=== PATIENT | male | born 1960 | race Caucasian/White ===

== ENCOUNTER → 2020-05-27 | Day surgery (SDC) | payer MEDICARE ==
[2020-05-22 10:51] VITALS: BMI 29.7
[~2020-05-27] MED LIST: ALPRAZolam 0.25 MG TAB PO PRN; ALPRAZolam 0.5 MG TAB PO PRN; ASPIRIN 325 MG TAB PO STA; ATORVASTATIN 80 MG TAB PO STA; HEPARIN SODIUM 1,000 UN/ML (10ML VL) IV ONE; HEPARIN SODIUM 1,000 UN/ML (10ML VL) ONE; HYDROCORTISONE 1% CREAM 30 GM TUBE TOPICAL PRN; IOPAMIDOL-370 100ML BTL INJ ONE; LIDOCAINE 1% INJ 10MG/ML (20 ML MDV) ONE; LIDOCAINE 1% INJ 10MG/ML (20 ML MDV) SQ ONE; MIDAZOLAM 2 MG/2 ML VIAL IVP ONE; NITROGLYCERIN SL TABS 0.4 MG TAB SUBLINGUAL PRN; SODIUM CHLORIDE 0.9% 1,000 ML IV ONE; SODIUM CHLORIDE 0.9% 1,000 ML IV SCH; SODIUM CHLORIDE 0.9% 1,000 ML in EMPTY BAG 1 BAG IV ONE; diphenhydrAMINE 50 MG/ML 1 ML VIAL IVP ONE; diphenhydrAMINE 50 MG/ML 1 ML VIAL ONE; methylPREDNISolone SOD SUCCI 125 MG/2 ML VIAL IV ONE; methylPREDNISolone SOD SUCCI 125 MG/2 ML VIAL ONE
[2020-05-27 07:12] LABS: Basophils # (A) 0.1 k/uL (0-0.2); Basophils % (A) 2 %; Eosinophils # (A) 0.2 k/uL (0-0.7); Eosinophils % (A) 2 %; HCT 42.3 % (39.0-53.0); HGB 13.9 gm/dL (13.0-17.5); Hypochromasia Slight; Lymphocytes # (A) 1.2 k/uL (1.0-4.8); Lymphocytes % (A) 16 %; MCH 30.7 pg (25.0-35.0); MCV 93.2 fL (80.0-100.0); Mean Platelet Volume 9.3; Monocytes # (A) 0.5 k/uL (0-1.0); Monocytes % (A) 6 %; Neutrophils # (A) 5.4 k/uL (1.3-7.7); Neutrophils % (A) 72 %; Platelet Count 195 k/uL (150-450); RBC 4.53 m/uL (4.30-5.90); WBC 7.4 k/uL (3.8-10.6)
[2020-05-27 07:18] VITALS: TEMP 98.1
[2020-05-27 07:25] LABS: Calcium 9.1 mg/dL (8.4-10.2); Potassium 4.4 mmol/L (3.5-5.1)
[2020-05-27 10:15] VITALS: RESP 16
[2020-05-27 13:48] VITALS: BP 131/69; PULSE 86
--- NOTE | 2020-05-27 14:04 | PTCA ---
PERCUTANEOUSTRANS CORORONARY ANGIOGRAPHY DATE OF SERVICE: 05/27/2020. PROCEDURE: PTCA off a chronic total occlusion of mid circumflex. An unsuccessful procedure. PERFORMED BY: Dr. Carlo Taylor. Moderate conscious sedation time was 36 minutes. Patient was administered Versed. Oxygen saturation, hemodynamics, and EKG were monitored closely. CLINICAL INFORMATION: Mr. Meliton Sam is a 60-year-old gentleman with a known history of CAD who underwent a cardiac cath on 05/15/2020 at [facility], which revealed a chronic total occlusion of mid circumflex and beyond it also there were 2 branches of circumflex. This is a dominant vessel and one of the branches also had an additional 80%-90% lesion as well. There was another 80%-90% stenosis in the nondominant RCA. Left main and LAD were free of significant disease. He was advised intervention with the understanding that CRITICAL CARE TRANSPORT NURSE success rate is about 60%-70%. He also has a single kidney with previous nephrectomy and he had history of renal cancer before. He had a left nephrectomy. He was brought in for the procedure after adequate hydration. PROCEDURE NOTE: Under local anesthesia and strict aseptic precautions, a 6-Citizen Of [place] introducer was placed in the right femoral artery. Using a standard left Mague guide catheter, a run- through long wire and a super cross catheter I attempted to cross the lesion. Multiple attempts were made. I also switched over to a 45 degree angle super cross. I was unable to cross the total occlusion. I gave about 60-65 mL of contrast. I discontinued the procedure since this was unsuccessful and I did not want to persist any anymore with his history of single kidney and a creatinine of 1.7. This was discussed with the patient and . I will discharge him later on today and see him in the office and discuss other options at that time. The patient also had developed some rash 4-5 days after his cardiac cath and the rash in the clinical picture does not suggest a rash related to contrast at all. However, I gave him some steroids and Benadryl before the procedure. We will give him a steroid local cream as well to apply over the area and an additional steroid injection before he goes home. However, this does not appear to be a dilated rash. I am advising a Dermatology evaluation as well. The patient will be discharged later on today. This was an unsuccessful PCI procedure. Details were discussed with the patient and . MMODL / IJN: [id number] /
== END ==
LOC: CATHCVL 06:22
PROVIDERS: ATTEND Internal Medicine Interventional Cardiology
DX: I25.10 Atherosclerotic heart disease of native coronary artery without angina pectoris (principal); I25.82 Chronic total occlusion of coronary artery; R21 Rash and other nonspecific skin eruption; I25.5 Ischemic cardiomyopathy; I12.9 Hypertensive chronic kidney disease with stage 1 through stage 4 chronic kidney disease, or unspecified chronic kidney disease; N18.3 Chronic kidney disease, stage 3 (moderate); E87.6 Hypokalemia; Z90.5 Acquired absence of kidney; Z85.528 Personal history of other malignant neoplasm of kidney; Z72.0 Tobacco use; Z79.899 Other long term (current) drug therapy; Z79.82 Long term (current) use of aspirin; Z88.2 Allergy status to sulfonamides; Z82.49 Family history of ischemic heart disease and other diseases of the circulatory system
CPT/HCPCS: 92943; 85347; 80048; 85025; C1769 ×4; C1760; C1887 ×2; C1894; J2250; J1200; J2930; J2001; J1644; Q9967; 92920

== ENCOUNTER → 2020-05-30 | Outpatient (CLI) | payer MEDICARE ==
[2020-05-30 11:52] LABS: HCT 44.6 % (39.0-53.0); Hypochromasia Slight; MCH 29.6 pg (25.0-35.0); MCHC 31.5 g/dL (31.0-37.0); Mean Platelet Volume 9.4; Platelet Count 196 k/uL (150-450); RBC 4.74 m/uL (4.30-5.90); RDW 14.8 % (11.5-15.5); WBC 8.7 k/uL (3.8-10.6)
[2020-05-30 20:42] LABS: African American GFR (CKD) 62.8 (60.0-200.0); Anion Gap 4.6 mmol/L (4.00-12.00); BUN/Creat Ratio 22.14 Ratio (12.00-20.00); Carbon Dioxide 30.4 mmol/L (21.6-31.8); Non-African American GFR(CKD) 54.2 (60.0-200.0); Potassium 4.5 mmol/L (3.5-5.5)
== END | disposition home or self-care (01) ==
LOC: LABWHC1 10:22
PROVIDERS: ATTEND Internal Medicine Interventional Cardiology
DX: I25.10 Atherosclerotic heart disease of native coronary artery without angina pectoris (principal); N18.9 Chronic kidney disease, unspecified
CPT/HCPCS: 36415; 80048; 85027

== ENCOUNTER 2020-08-11 13:56 | Inpatient (IN) | payer MEDICARE ==
[2020-08-11] MEDS ORDERED: VANCOMYCIN IV PER PHARMACY 1 EACH MISC MISCELLANE PRN (14:23)
[2020-08-11] MEDS ORDERED: cefTRIAXone IN SWFI 1,000 MG/10 ML SYRINGE IVP STA (14:24)
[2020-08-11] MEDS ORDERED: SODIUM CHLORIDE 0.9% 500 ML 500 ML IV STA (14:24)
--- NOTE | 2020-08-11 14:29 | ED ---
General Adult HPI - General Chief complaint: Skin/Abscess/Foreign Body Stated complaint: Bug bite Time Seen by Provider: 08/11/20 14:07 Source: patient, RN notes reviewed Mode of arrival: ambulatory Limitations: no limitations - History of Present Illness Initial comments: 60-year-old male with a past medical history of CAD, PA, COPD, CVA, renal disease presents to the emergency room for a chief complaint of "bug bite" to the right wrist. Patient reports that 2 days ago he felt a pain in the right wrist. Patient states he thinks he may have been bitten by a bug. States that since that time it has become red and swollen. States it is swelling all into his hand and up his arm. States it is somewhat painful to move his wrist but he can do so. Patient reports he also has some redness to the front of his right knee. Denies difficulty moving the knee. Patient reports that he was treated for abscess of the left anterior knee about 2 weeks ago. He has been on steroids for atopic dermatitis. Patient reports that he did have a 101 fever pr ior to arrival and took Tylenol. Patient reports he is supposed to have stents placed on Wednesday and is planning to have access through the wrist and groin. Patient has no other complaints at this time including shortness of breath, chest pain, abdominal pain, nausea or vomiting, headache, or visual changes. - Related Data Home Medications Medication Instructions Recorded Confirmed Allopurinol [Zyloprim] 100 mg PO BID 05/22/20 05/27/20 Aspirin [Adult Low Dose Aspirin EC] 81 mg PO DAILY 05/22/20 05/27/20 Atorvastatin [Lipitor] 20 mg PO DAILY 05/22/20 05/27/20 Cannabidiol (Cbd) [Epidiolex] 0 mg PO DIRECTED PRN 05/22/20 05/22/20 Cetirizine HCl [Zyrtec] 10 mg PO DAILY 05/22/20 05/27/20 Furosemide [Lasix] 20 mg PO 1500 05/22/20 05/27/20 Furosemide [Lasix] 40 mg PO DAILY 05/22/20 05/27/20 Losartan Potassium [Cozaar] 25 mg PO DAILY 05/22/20 05/27/20 Metoprolol Tartrate [Lopressor] 25 mg PO BID 05/22/20 05/27/20 Multivit-Min/FA/Lycopen/Lutein 1 each PO DAILY 05/22/20 05/27/20 [Centrum Silver Tablet] Potassium Chloride 10 meq PO TID 05/22/20 05/27/20 Triamcinolone 0.5% Cream [Kenalog 1 applic TOPICAL DIRECTED PRN 05/22/20 05/22/20 0.5% Cream] Allergies Allergy/AdvReac Type Severity Reaction Status Date / Time Iodine and Iodide Containing Allergy Rash/Hives Verified 08/11/20 14:06 Produc Sulfa (Sulfonamide Allergy Rash/Hives Verified 08/11/20 14:06 Antibiotics) sulfamethoxazole Allergy Rash/Hives Verified 08/11/20 14:06 [From Bactrim] trimethoprim [From Bactrim] Allergy Rash/Hives Verified 08/11/20 14:06 Review of Systems ROS Statement: Those systems with pertinent positive or pertinent negative responses have been documented in the HPI. ROS Other: All systems not noted in ROS Statement are negative. Past Medical History Past Medical History: Coronary Artery Disease (CAD), Chest Pain / Angina, COPD, CVA/TIA, Myocardial Infarction (PA), Osteoarthritis (OA), Renal Disease, Skin Disorder Additional Past Medical History / Comment(s): hx migraines, epileptic seizures age 5-no rx, TIA, PA x 2, electrocuted 30 yrs ago, diverticulitis, eczema, atopic dermatitis, renal disease stage 3, "swelling of whole body",, SOB, needs cardiac stent placed on 08/13 Last Myocardial Infarction Date:: unknown History of Any Multi-Drug Resistant Organisms: None Reported Past Surgical History: Ear Surgery, Heart Catheterization Additional Past Surgical History / Comment(s): left nephrectomy, tip of jade index fingers surgery after injury, heart cath 04/2020 at [facility], prosthetic surgery jade ears for otosclerosis Past Anesthesia/Blood Transfusion Reactions: No Reported Reaction Past Psychological History: No Psychological Hx Reported Smoking Status: Former smoker Past Alcohol Use History: Rare Past Drug Use History: Marijuana - Past Family History Brother(s) Family Medical History: Cancer Mother Family Medical History: Blood Disorder General Exam - General Exam Comments Initial Comments: Right upper extremity: Patient has edema with erythema noted of the right hand wrist and distal forearm. He has an area of induration noted to the medial dorsal right wrist. This is not fluctuant. No active drainage. Patient is able to flex and extend at the wrist although has somewhat limited range of motion secondary to pain. Radial pulses 2+. Capillary refill is less than 2 seconds. Right lower extremity: patient does have some erythema to the anterior right knee. He has full range of motion of the knee joint. Patient able to ambulate on the right knee. Capillary refill less than 2 seconds. Limitations: no limitations General appearance: alert, in no apparent distress Head exam: Present: atraumatic, normocephalic, normal inspection Eye exam: Present: normal appearance, PERRL, EOMI. Absent: scleral icterus, conjunctival injection, periorbital swelling ENT exam: Present: normal exam, mucous membranes moist Neck exam: Present: normal inspection. Absent: tenderness, meningismus, lymphadenopathy Respiratory exam: Present: normal lung sounds bilaterally. Absent: respiratory distress, wheezes, rales, rhonchi, stridor Cardiovascular Exam: Present: regular rate, normal rhythm, normal heart sounds. Absent: systolic murmur, diastolic murmur, rubs, gallop, clicks GI/Abdominal exam: Present: soft, normal bowel sounds. Absent: distended, tenderness, guarding, rebound, rigid Course Vital Signs 08/11/20 13:58 Temperature 99.1 F Pulse Rate 83 Respiratory 18 Rate Blood Pressure 112/62 O2 Sat by Pulse 94 L Oximetry - Reevaluation(s) Reevaluation #1: 08/11/20 14:28 Dr Lopes evaluated patient at bedside, we will proceed with laboratory evaluation and IV abx. Procedures - Incision & Drainage Consent Obtained: verbal consent Indication: possible abscess Site: upper extremity Size (cm): 2 Needle Aspiration Performed?: No (18 G used) Irrigation Performed?: No I&D Drainage Obtained: Blood Patient Tolerated Procedure: well, no complications Medical Decision Making - Medical Decision Making Vitals are stable although patient reports a fever at home. HPI and physical exam is recommended. Patient was found have a white count of 17 with a left shift. CMP does show evidence of CKD. GFR is 47. Patient will be started on IV antibiotics Rocephin and vancomycin. Patient will be admitted for further management. I did attempt incision and drainage of induration on the right wrist however no purulent material expelled. - Lab Data Result diagrams: 08/11/20 14:33 08/11/20 14:33 Lab Results 08/11/20 08/11/20 08/11/20 Range/Units 14:33 14:33 14:33 WBC 17.6 H (3.8-10.6) k/uL RBC 4.63 (4.30-5.90) m/uL Hgb 13.4 (13.0-17.5) gm/dL Hct 42.3 (39.0-53.0) % MCV 91.3 (80.0-100.0) fL MCH 28.8 (25.0-35.0) pg MCHC 31.6 (31.0-37.0) g/dL RDW 15.1 (11.5-15.5) % Plt Count 132 L (150-450) k/uL Neutrophils % 90 % Lymphocytes % 4 % Monocytes % 5 % Eosinophils % 0 % Basophils % 1 % Neutrophils # 15.8 H (1.3-7.7) k/uL Lymphocytes # 0.7 L (1.0-4.8) k/uL Monocytes # 0.9 (0-1.0) k/uL Eosinophils # 0.1 (0-0.7) k/uL Basophils # 0.1 (0-0.2) k/uL Sodium 133 L (137-145) mmol/L Potassium 4.2 (3.5-5.1) mmol/L Chloride 101 (98-107) mmol/L Carbon Dioxide 28 (22-30) mmol/L Anion Gap 4 mmol/L BUN 26 H (9-20) mg/dL Creatinine 1.59 H (0.66-1.25) mg/dL Est GFR (CKD-EPI)AfAm 54 (>60 ml/min/1.73 sqM) Est GFR (CKD-EPI)NonAf 47 (>60 ml/min/1.73 sqM) Glucose 128 H (74-99) mg/dL Plasma Lactic Acid Shimon 1.2 (0.7-2.0) mmol/L Calcium 9.4 (8.4-10.2) mg/dL Total Bilirubin 0.4 (0.2-1.3) mg/dL AST 20 (17-59) U/L ALT 17 (4-49) U/L Alkaline Phosphatase 63 (38-126) U/L Total Protein 6.3 (6.3-8.2) g/dL Albumin 3.6 (3.5-5.0) g/dL Disposition Clinical Impression: Cellulitis, Leukocytosis Disposition: ADMITTED IP TO THIS HOSP Is patient prescribed a controlled substance at d/c from ED?: No Referrals: Jostin Feliz MD [Primary Care Provider] - 1-2 days Time of Disposition: 15:15
[2020-08-11] MEDS ORDERED: SODIUM CHLORIDE 0.9% 500 ML 500 ML IV SCH (14:30)
[2020-08-11] MEDS ORDERED: VANCOMYCIN 2,000 MG in SODIUM CHLORIDE 0.9% 500 ML 500 ML IVPB ONE (14:30)
[2020-08-11 14:46] LABS: Basophils # (A) 0.1 k/uL (0-0.2); Basophils % (A) 1 %; Eosinophils # (A) 0.1 k/uL (0-0.7); Eosinophils % (A) 0 %; HCT 42.3 % (39.0-53.0); HGB 13.4 gm/dL (13.0-17.5); Lymphocytes # (A) 0.7 k/uL (1.0-4.8); Lymphocytes % (A) 4 %; MCH 28.8 pg (25.0-35.0); MCHC 31.6 g/dL (31.0-37.0); MCV 91.3 fL (80.0-100.0); Mean Platelet Volume 9.3; Monocytes # (A) 0.9 k/uL (0-1.0); Monocytes % (A) 5 %; Neutrophils # (A) 15.8 k/uL (1.3-7.7); Neutrophils % (A) 90 %; Platelet Count 132 k/uL (150-450); RBC 4.63 m/uL (4.30-5.90); RDW 15.1 % (11.5-15.5); WBC 17.6 k/uL (3.8-10.6)
[2020-08-11 14:59] LABS: Albumin 3.6 g/dL (3.5-5.0); Calcium 9.4 mg/dL (8.4-10.2); Potassium 4.2 mmol/L (3.5-5.1); Total Bilirubin 0.4 mg/dL (0.2-1.3); Total Protein 6.3 g/dL (6.3-8.2)
[2020-08-11] MEDS ORDERED: HYDROcodone/APAP 5-325MG 1 EACH TAB PO PRN (15:12)
[2020-08-11] MEDS ORDERED: NALOXONE 0.4 MG/ML 1 ML VIAL IV PRN (15:12)
[2020-08-11] MEDS ORDERED: ONDANSETRON 4 MG/2 ML VIAL IVP PRN (15:14)
--- NOTE | 2020-08-11 15:33 | XR ---
Right wrist HISTORY: Pain and swelling, but bite, cellulitis 4 views of the right wrist Probable geode present within the capitate and triquetrum bones. Bone mineralization, joint spaces an d alignment otherwise maintained. There is soft tissue swelling present. IMPRESSION: Soft tissue swelling.
[2020-08-11] MEDS: MORPHINE SULFATE 4 MG/ML SYRINGE IVP PRN (16:12)
[2020-08-11] MEDS: SODIUM CHLORIDE 0.9% 1,000 ML IV SCH (17:12)
[2020-08-11] MEDS: ACETAMINOPHEN TAB 325 MG TAB PO PRN (19:39)
[2020-08-12] MEDS: MORPHINE SULFATE 4 MG/ML SYRINGE IVP PRN ×2 (01:15→17:09)
[2020-08-12] MEDS: SODIUM CHLORIDE 0.9% 1,000 ML IV SCH ×2 (03:30→18:58)
[2020-08-12 05:01] LABS: Basophils % (A) 0 %; Eosinophils % (A) 0 %; HCT 40.5 % (39.0-53.0); HGB 12.8 gm/dL (13.0-17.5); Hypochromasia Slight; Lymphocytes # (A) 1.2 k/uL (1.0-4.8); Lymphocytes % (A) 8 %; MCH 29.3 pg (25.0-35.0); MCHC 31.7 g/dL (31.0-37.0); MCV 92.4 fL (80.0-100.0); Mean Platelet Volume 9.1; Monocytes # (A) 0.7 k/uL (0-1.0); Monocytes % (A) 5 %; Neutrophils # (A) 12.6 k/uL (1.3-7.7); Neutrophils % (A) 86 %; Platelet Count 123 k/uL (150-450); RBC 4.38 m/uL (4.30-5.90); RDW 15.4 % (11.5-15.5); WBC 14.7 k/uL (3.8-10.6)
[2020-08-12] MEDS: ACETAMINOPHEN TAB 325 MG TAB PO PRN ×3 (05:54→23:01)
[2020-08-12] MEDS ORDERED: VANCOMYCIN 1,500 MG in SODIUM CHLORIDE 0.9% 250 ML IVPB SCH (07:00)
[2020-08-12 10:11] LABS: African American GFR (CKD) 75.7 (60.0-200.0); Anion Gap 5.3 mmol/L (4.00-12.00); BUN/Creat Ratio 17.5 Ratio (12.00-20.00); Calcium 8.5 mg/dL (8.7-10.3); Carbon Dioxide 28.7 mmol/L (21.6-31.8); Non-African American GFR(CKD) 65.3 (60.0-200.0); Potassium 4.3 mmol/L (3.5-5.5)
[2020-08-12] MEDS ORDERED: TRIAMCINOLONE ACET 0.5% CREAM 15 GM TUBE TOPICAL PRN (12:30)
[2020-08-12] MEDS ORDERED: IPRATROPIUM-ALBUTEROL 3 ML NEB INHALATION PRN (12:34)
--- NOTE | 2020-08-12 13:29 | P.HPIM ---
History of Present Illness 6-year-old pleasant male came in with swelling of the right hand a little bit with cellulitis patient does have significant induration with local is of temperature pain burning sensation in that area patient also has an area over the knee which appears to be cellulitic as well. Patient was outdoors and believes he may have had a bug bite B bite which may have caused these symptoms. Patient all these immunosuppressive patient does have history of atopic dermatitis and does have skin lesions consistent with that and patient is on prednisone for that. The patient had hospital physicians in the past but the denied any history of MRSA in the past. Patient was given vancomycin which will receive his switched to ceftezole and and the infectious disease will be consulted. Patient has what kidney status post nephrectomy patient does have some chronic kidney disease use does use Lasix to prevent pedal edema. Review of Systems REVIEW OF SYSTEMS: CONSTITUTIONAL: No fever, no malaise, no fatigue. HEENT: No recent visual problems or hearing problems. Denied any sore throat. CARDIOVASCULAR: No chest pain, orthopnea, PND, no palpitations, no syncope. PULMONARY: No shortness of breath, no cough, no hemoptysis. GASTROINTESTINAL: No diarrhea, no nausea, no vomiting, no abdominal pain. NEUROLOGICAL: No headaches, no weakness, no numbness. HEMATOLOGICAL: Denies any bleeding or petechiae. GENITOURINARY: Denies any burning micturition, frequency, or urgency. MUSCULOSKELETAL/RHEUMATOLOGICAL: Denies any joint pain, swelling, or any muscle pain. ENDOCRINE: Denies any polyuria or polydipsia. The rest of the 14-point review of systems is negative. Past Medical History Past Medical History: Coronary Artery Disease (CAD), Chest Pain / Angina, COPD, CVA/TIA, Myocardial Infarction (PA), Osteoarthritis (OA), Renal Disease, Skin Disorder Additional Past Medical History / Comment(s): hx migraines, epileptic seizures age 5-no rx, TIA, PA x 2, electrocuted 30 yrs ago, diverticulitis, eczema, atopic dermatitis, renal disease stage 3, "swelling of whole body",, SOB, needs cardiac stent placed on 08/13 Last Myocardial Infarction Date:: unknown History of Any Multi-Drug Resistant Organisms: None Reported Past Surgical History: Ear Surgery, Heart Catheterization Additional Past Surgical History / Comment(s): left nephrectomy, tip of jade index fingers surgery after injury, heart cath 04/2020 at [facility], prosthetic surgery jade ears for otosclerosis Past Anesthesia/Blood Transfusion Reactions: No Reported Reaction Past Psychological History: No Psychological Hx Reported Smoking Status: Former smoker Past Alcohol Use History: Rare Additional Past Alcohol Use History / Comment(s): quit smoking 2015, smoked for 30 yrs Past Drug Use History: Marijuana Additional Drug Use History / Comment(s): CBC oil, edible - Past Family History Brother(s) Family Medical History: Cancer Mother Family Medical History: Blood Disorder Medications and Allergies Home Medications Medication Instructions Recorded Confirmed Type Allopurinol [Zyloprim] 100 mg PO BID 05/22/20 08/11/20 History Aspirin [Adult Low Dose Aspirin EC] 81 mg PO DAILY 05/22/20 08/11/20 History Atorvastatin [Lipitor] 20 mg PO DAILY 05/22/20 08/11/20 History Cetirizine HCl [Zyrtec] 10 mg PO DAILY 05/22/20 08/11/20 History Furosemide [Lasix] 20 mg PO DAILY@1500 05/22/20 08/11/20 History Furosemide [Lasix] 40 mg PO DAILY 05/22/20 08/11/20 History Losartan Potassium [Cozaar] 25 mg PO DAILY 05/22/20 08/11/20 History Metoprolol Tartrate [Lopressor] 25 mg PO BID 05/22/20 08/11/20 History Multivit-Min/FA/Lycopen/Lutein 1 tab PO DAILY 05/22/20 08/11/20 History [Centrum Silver Tablet] Potassium Chloride 10 meq PO HS 05/22/20 08/11/20 History Triamcinolone 0.5% Cream [Kenalog 1 applic TOPICAL DAILY PRN 05/22/20 08/11/20 History 0.5% Cream] Potassium Chloride 20 meq PO DAILY 08/11/20 08/11/20 History predniSONE See Taper PO DAILY 08/11/20 08/11/20 History Allergies Allergy/AdvReac Type Severity Reaction Status Date / Time Iodine and Iodide Containing Allergy Rash/Hives Verified 08/11/20 15:41 Produc Sulfa (Sulfonamide Allergy Rash/Hives Verified 08/11/20 15:41 Antibiotics) sulfamethoxazole Allergy Rash/Hives Verified 08/11/20 15:41 [From Bactrim] trimethoprim [From Bactrim] Allergy Rash/Hives Verified 08/11/20 15:41 Physical Exam Vitals: Vital Signs Temp Pulse Pulse Resp BP BP Pulse Ox 08/12/20 08:00 86 20 08/12/20 07:00 99.9 F H 86 20 125/69 94 L 08/12/20 01:00 99.8 F H 77 20 144/75 92 L 08/11/20 19:30 98.5 F 82 20 130/77 95 08/11/20 16:12 98 F 74 20 118/67 94 L 08/11/20 16:00 74 20 08/11/20 15:39 97.9 F 76 18 122/60 100 08/11/20 13:58 99.1 F 83 18 112/62 94 L Intake and Output 08/11/20 08/12/20 08/12/20 22:59 06:59 14:59 Intake Total 300 100 Balance 300 100 Intake: Oral 300 100 Other: Voiding Method Toilet Toilet # Voids 1 2 Weight 102.058 kg PHYSICAL EXAMINATION: GENERAL: The patient is alert and oriented x3, not in any acute distress. Well developed, well nourished. HEENT: Pupils are round and equally reacting to light. EOMI. No scleral icterus. No conjunctival pallor. Normocephalic, atraumatic. No pharyngeal erythema. No thyromegaly. CARDIOVASCULAR: S1 and S2 present. No murmurs, rubs, or gallops. PULMONARY: Chest is clear to auscultation, no wheezing or crackles. ABDOMEN: Soft, nontender, nondistended, normoactive bowel sounds. No palpable organomegaly. MUSCULOSKELETAL: No joint swelling or deformity. EXTREMITIES: No cyanosis, clubbing, or pedal edema. NEUROLOGICAL: Gross neurological examination did not reveal any focal deficits. SKIN:lesions and a scribe ration consistent with atopic dermatitis and cellulitis of the right arm extending from the wrist to joint almost up to the e lbow joint and there is a small nidus of infection. Local is of temperature patient does have in duration local is of temperature and redness patient also has a small area of cellulitis over the knee also has a nidus of infection Results CBC & Chem 7: 08/12/20 04:15 08/12/20 04:15 Labs: Abnormal Lab Results - Last 24 Hours (Table) 08/11/20 08/11/20 08/12/20 Range/Units 14:33 14:33 04:15 WBC 17.6 H 14.7 H (3.8-10.6) k/uL Hgb 12.8 L (13.0-17.5) gm/dL Plt Count 132 L 123 L (150-450) k/uL Neutrophils # 15.8 H 12.6 H (1.3-7.7) k/uL Lymphocytes # 0.7 L (1.0-4.8) k/uL Sodium 133 L (137-145) mmol/L BUN 26 H (9-20) mg/dL Creatinine 1.59 H (0.66-1.25) mg/dL Glucose 128 H (74-99) mg/dL Calcium (8.7-10.3) mg/dL 08/12/20 Range/Units 04:15 WBC (3.8-10.6) k/uL Hgb (13.0-17.5) gm/dL Plt Count (150-450) k/uL Neutrophils # (1.3-7.7) k/uL Lymphocytes # (1.0-4.8) k/uL Sodium (137-145) mmol/L BUN (9-20) mg/dL Creatinine (0.66-1.25) mg/dL Glucose (74-99) mg/dL Calcium 8.5 L (8.7-10.3) mg/dL Thrombosis Risk Factor Assmnt - Choose All That Apply Each Factor Represents 1 point: Age 41-60 years Thrombosis Risk Factor Assessment Total Risk Factor Score: 1 Thrombosis Risk Factor Assessment Level: Low Risk Assessment and Plan Plan: 1sepsis and cellulitis or induration of the right arm as well ascellulitis of right knee: Patient will continued on ceftezolin and patient is receiving IV fluids which will be continued.Blanca with IV fluids [place]-chronic kidney disease stage II patient has unilateral kidney patient that creatinine improved with IV fluids which will be continued hold off Lasix for now -COPD without any acute exacerbation -History of atopic dermatitis and eczema: Patient is on steroids for that which will be continued the steroids are being Tapered because of his the scram admission and exacerbation of her he took his of atopic dermatitis -CVA/TIA in the past -acute renal failure secondary to possibly from diuretics which improved now. -Coronary artery disease patient is supposed to get characterization tomorrow but this is being postponed because of his hospitalization and infection. -DVT prophylaxis with Lovenox
[2020-08-12] MEDS ORDERED: ceFAZolin 3 GM in SODIUM CHLORIDE 0.9% 100 ML IVPB SCH (16:00)
[2020-08-12] MEDS: predniSONE 10 MG TAB PO SCH ×2 (18:58→21:51)
[2020-08-12] MEDS: FAMOTIDINE 20 MG TAB PO SCH (20:10)
[2020-08-12] MEDS: allopurinoL 100 MG TAB PO SCH (20:10)
[2020-08-12] MEDS: METOPROLOL TARTRATE 25 MG TAB PO SCH (20:10)
[2020-08-12] MEDS ORDERED: VANCOMYCIN 1,750 MG in SODIUM CHLORIDE 0.9% 500 ML 500 ML IVPB SCH (21:00)
[2020-08-12] MEDS ORDERED: VANCOMYCIN IV PER PHARMACY 1 EACH MISC MISCELLANE PRN (22:14)
--- NOTE | 2020-08-12 22:22 | P.CONS ---
History of Present Illness - Reason for Consult Consult date: 08/12/20 Right wrist and right lower thigh abscess and cellulitis Requesting physician: Santi Mahmood - Chief Complaint Right wrist and lower thigh swelling and redness x 2 days - History of Present Illness Patient is 60-year-old male with a past medical history significant for recurrent skin soft tissue infection patient did have an abscess to the right lower thigh that was drained by his primary care physician culture were sent to [facility] which I was unable to review and grew MRSA patient mentioned he was treated with an oral antibiotic however is not sure about the name patient is now presenting to [facility] yesterday for evaluation of pain and swelling of the right forearm as well as the right lower thigh area that has been getting worse for the last 2 days patient think he may have a bump in those areas patient described the pain to the right forearm and wrist area to be throbbing intensity is almost healed up and and no radiation of pain to the right lower thigh area of swelling redness is more of a 5-6 out of 10 and no radiation the patient currently denies any drainage from these wounds patient on arrival to the ER yesterday did have a low-grade fever of 99.1 subsequent spike a fever of 99.8 and did have elevated white count 17,000 x-rays of the wrist tissue some soft tissue swelling but no bony changes patient was started on vancomycin admitted to the hospital anybody subsequently has been switched to cefazolin by admitting physician and infectious disease was consulted for further management of antibiotic therapy Review of Systems Positive point has been mentioned in the HPI rest of the systems are negative Past Medical History Past Medical History: Coronary Artery Disease (CAD), Chest Pain / Angina, COPD, CVA/TIA, Myocardial Infarction ([place]), Osteoarthritis (OA), Renal Disease, Skin Disorder Additional Past Medical History / Comment(s): hx migraines, epileptic seizures age 5-no rx, TIA, [place] x 2, electrocuted 30 yrs ago, diverticulitis, eczema, atopic dermatitis, renal disease stage 3, "swelling of whole body",, SOB, needs cardiac stent placed on 08/13 Last Myocardial Infarction Date:: unknown History of Any Multi-Drug Resistant Organisms: None Reported Past Surgical History: Ear Surgery, Heart Catheterization Additional Past Surgical History / Comment(s): left nephrectomy, tip of jade index fingers surgery after injury, heart cath 04/2020 at [facility], prosthetic surgery jade ears for otosclerosis Past Anesthesia/Blood Transfusion Reactions: No Reported Reaction Past Psychological History: No Psychological Hx Reported Smoking Status: Former smoker Past Alcohol Use History: Rare Additional Past Alcohol Use History / Comment(s): quit smoking 2015, smoked for 30 yrs Past Drug Use History: Marijuana Additional Drug Use History / Comment(s): CBC oil, edible - Past Family History Brother(s) Family Medical History: Cancer Mother Family Medical History: Blood Disorder Medications and Allergies Home Medications Medication Instructions Recorded Confirmed Type Allopurinol [Zyloprim] 100 mg PO BID 05/22/20 08/11/20 History Aspirin [Adult Low Dose Aspirin EC] 81 mg PO DAILY 05/22/20 08/11/20 History Atorvastatin [Lipitor] 20 mg PO DAILY 05/22/20 08/11/20 History Cetirizine HCl [Zyrtec] 10 mg PO DAILY 05/22/20 08/11/20 History Furosemide [Lasix] 20 mg PO DAILY@1500 05/22/20 08/11/20 History Furosemide [Lasix] 40 mg PO DAILY 05/22/20 08/11/20 History Losartan Potassium [Cozaar] 25 mg PO DAILY 05/22/20 08/11/20 History Metoprolol Tartrate [Lopressor] 25 mg PO BID 05/22/20 08/11/20 History Multivit-Min/FA/Lycopen/Lutein 1 tab PO DAILY 05/22/20 08/11/20 History [Centrum Silver Tablet] Potassium Chloride 10 meq PO HS 05/22/20 08/11/20 History Triamcinolone 0.5% Cream [Kenalog 1 applic TOPICAL DAILY PRN 05/22/20 08/11/20 History 0.5% Cream] Potassium Chloride 20 meq PO DAILY 08/11/20 08/11/20 History predniSONE See Taper PO DAILY 08/11/20 08/11/20 History Allergies Allergy/AdvReac Type Severity Reaction Status Date / Time Iodine and Iodide Containing Allergy Rash/Hives Verified 08/11/20 15:41 Produc Sulfa (Sulfonamide Allergy Rash/Hives Verified 08/11/20 15:41 Antibiotics) sulfamethoxazole Allergy Rash/Hives Verified 08/11/20 15:41 [From Bactrim] trimethoprim [From Bactrim] Allergy Rash/Hives Verified 08/11/20 15:41 Physical Exam Vitals: Vital Signs Temp Pulse Resp BP Pulse Ox 08/12/20 19:25 98.9 F 94 20 159/80 96 08/12/20 18:58 8 L 8 L 08/12/20 16:00 92 17 08/12/20 14:07 99.4 F 92 17 150/72 96 08/12/20 08:00 86 20 08/12/20 07:00 99.9 F H 86 20 125/69 94 L 08/12/20 01:00 99.8 F H 77 20 144/75 92 L Intake and Output 08/12/20 08/12/20 08/12/20 06:59 14:59 22:59 Intake Total 100 Output Total 600 Balance 100 -600 Intake: Oral 100 Output: Urine 600 Other: Voiding Method Toilet Toilet # Voids 2 1 1 GENERAL DESCRIPTION: Middle-aged male lying in bed, no distress. No tachypnea or accessory muscle of respiration use. HEENT: Shows Pallor , no scleral icterus. Oral mucous membrane is dry. No pharyngeal erythema or thrush NECK: Trachea central, no thyromegaly. LUNGS: Unlabored breathing. Clear to auscultation anteriorly. No wheeze or crackle. HEART: S1, S2, regular rate and rhythm. No loud murmur ABDOMEN: Soft, no tenderness , guarding or rigidity, no organomegaly EXTREMITIES: No edema of feet. SKIN: Right wrist did have an area swelling and induration warm and tender to touch, right medial lower thigh did have an area of induration and swelling and redness slightly fluctuant but no drainage NEUROLOGICAL: The patient is awake, alert, oriented x3, mood and affect normal. Results CBC & Chem 7: 08/12/20 04:15 08/12/20 04:15 Labs: Abnormal Lab Results - Last 24 Hours (Table) 08/12/20 08/12/20 Range/Units 04:15 04:15 WBC 14.7 H (3.8-10.6) k/uL Hgb 12.8 L (13.0-17.5) gm/dL Plt Count 123 L (150-450) k/uL Neutrophils # 12.6 H (1.3-7.7) k/uL Calcium 8.5 L (8.7-10.3) mg/dL Microbiology - Last 24 Hours (Table) 08/11/20 14:33 Blood Culture - Preliminary Blood No Growth after 24 hours Assessment and Plan Assessment: 1- patient presented to hospital with sepsis in this patient who did have a fever and elevated white count source is likely right forearm as well as right lower medial thigh abscess and cellulitis in this patient who recently did have a left lower thigh abscess cellulitis culture were positive for MRSA that was drained by his family physician in the office 2- Patient with multiple antibiotic ALLERGIES that would limit the number of ant ibiotic safe to use (1) Cellulitis and abscess of right leg Current Visit: Yes Status: Acute Code(s): L03.115 - CELLULITIS OF RIGHT LOWER LIMB; L02.415 - CUTANEOUS ABSCESS OF RIGHT LOWER LIMB SNOMED Code(s): 897964136 (2) Sepsis Current Visit: Yes Status: Acute Code(s): A41.9 - SEPSIS, UNSPECIFIED ORGANISM SNOMED Code(s): 27929917 (3) Allergy to sulfa drugs Current Visit: Yes Status: Acute Code(s): Z88.2 - ALLERGY STATUS TO SULFONAMIDES STATUS SNOMED Code(s): 78519728 Plan: 1- discontinue cefazolin 2-Vancomycin pharmacy to dose target trough of 15 while watching his kidney function and Vanco trough closely 3- patient will benefit from surgical evaluation and drainage of these abscess We will follow on clinical condition and cultures to further adjust medication if needed Thank you for this consultation will follow this patient with you Time with Patient: Greater than 30
[2020-08-12] MEDS: VANCOMYCIN 1,750 MG in SODIUM CHLORIDE 0.9% 500 ML 500 ML IVPB SCH (22:39)
[2020-08-13 06:00] LABS: HCT 39.8 % (39.0-53.0); HGB 12.4 gm/dL (13.0-17.5); Hypochromasia Slight; MCHC 31.2 g/dL (31.0-37.0); MCV 92.8 fL (80.0-100.0); Mean Platelet Volume 9.2; Platelet Count 119 k/uL (150-450); RBC 4.29 m/uL (4.30-5.90); RDW 14.9 % (11.5-15.5); WBC 14.1 k/uL (3.8-10.6)
[2020-08-13] MEDS: ASPIRIN 81 MG PO SCH (07:36)
[2020-08-13] MEDS: LOSARTAN 25 MG TAB PO SCH (07:36)
[2020-08-13] MEDS: METOPROLOL TARTRATE 25 MG TAB PO SCH ×2 (07:36→21:48)
[2020-08-13] MEDS: ATORVASTATIN 20 MG TAB PO SCH (07:36)
[2020-08-13] MEDS: FAMOTIDINE 20 MG TAB PO SCH ×2 (07:36→21:48)
[2020-08-13] MEDS: allopurinoL 100 MG TAB PO SCH ×2 (07:37→21:49)
[2020-08-13] MEDS: predniSONE 10 MG TAB PO SCH ×4 (07:37→21:48)
[2020-08-13] MEDS: SODIUM CHLORIDE 0.9% 1,000 ML IV SCH ×2 (07:37→21:41)
[2020-08-13] MEDS: ENOXAPARIN 40 MG/0.4 ML SYRINGE SQ SCH (07:37)
[2020-08-13] MEDS ORDERED: predniSONE 10 MG TAB PO SCH (09:00)
[2020-08-13 09:28] LABS: African American GFR (CKD) 62.8 (60.0-200.0); Anion Gap 6.7 mmol/L (4.00-12.00); BUN/Creat Ratio 12.14 Ratio (12.00-20.00); Calcium 8.2 mg/dL (8.7-10.3); Carbon Dioxide 28.3 mmol/L (21.6-31.8); Non-African American GFR(CKD) 54.2 (60.0-200.0); Potassium 4.3 mmol/L (3.5-5.5)
[2020-08-13] MEDS ORDERED: LIDOCAINE 1% INJ 10MG/ML (20 ML MDV) ONE (12:22)
--- NOTE | 2020-08-13 13:11 | P.PN ---
Subjective she is admitted with right hand cellulitisand now abscess. Patient the wound cultures are showing MRSA and now. Patient has significant induration and abscess in the right hand as well as right knee may need drainage general surgery was consulted.his redness in the right arm is bit better compared to yesterday. Constitutional: Denied any fatigue denied any fever. Cardio vascular: denied any chest pain, palpitations Gastrointestinal denied any nausea vomiting Pulmonary: Denied any shortness of breath cough Neurologic denied any new focal deficits All inpatient medications were reviewed and appropriate changes in these medications as dictated in the interval history and assessment and plan. Objective - Vital Signs Vital signs: Vital Signs Temp 98.2 F 08/13/20 07:30 Pulse 72 08/13/20 07:30 Resp 16 08/13/20 07:30 BP 170/78 08/13/20 07:30 Pulse Ox 94 L 08/13/20 07:30 Intake & Output 08/12/20 08/13/20 08/13/20 18:59 06:59 18:59 Intake Total 100 Output Total 602 Balance -502 Intake: Oral 100 Output: Urine 600 Stool 2 Other: Voiding Method Toilet # Voids 1 600 - Exam PHYSICAL EXAMINATION: GENERAL: The patient is alert and oriented x3, not in any acute distress. Well developed, well nourished. HEENT: Pupils are round and equally reacting to light. EOMI. No scleral icterus. No conjunctival pallor. Normocephalic, atraumatic. No pharyngeal erythema. No thyromegaly. CARDIOVASCULAR: S1 and S2 present. No murmurs, rubs, or gallops. PULMONARY: Chest is clear to auscultation, no wheezing or crackles. ABDOMEN: Soft, nontender, nondistended, normoactive bowel sounds. No palpable organomegaly. MUSCULOSKELETAL: No joint swelling or deformity. EXTREMITIES: No cyanosis, clubbing, or pedal edema. NEUROLOGICAL: Gross neurological examination did not reveal any focal deficits. SKIN:lesions and a scribe ration consistent with atopic dermatitis and cellulitis of the right arm extending from the wrist to joint almost up to the elbow joint and there is a small nidus of infection. Local is of temperature patient does have in duration local is of temperature and redness patient also has a small area of cellulitis over the knee also has a nidus of infectionAsian has areas of abscess in the right hand and a small abscess in the right knee as well - Labs CBC & Chem 7: 08/13/20 05:43 08/13/20 05:43 Labs: Abnormal Lab Results - Last 24 Hours (Table) 08/13/20 08/13/20 Range/Units 05:43 05:43 WBC 14.1 H (3.8-10.6) k/uL RBC 4.29 L (4.30-5.90) m/uL Hgb 12.4 L (13.0-17.5) gm/dL Plt Count 119 L (150-450) k/uL Est GFR (CKD-EPI)NonAf 54.2 L (60.0-200.0) Glucose 115 H (70-110) mg/dL Calcium 8.2 L (8.7-10.3) mg/dL Microbiology - Last 24 Hours (Table) 08/12/20 18:00 Gram Stain - Preliminary Finger - Left Fifth Wound Culture - Preliminary 08/11/20 14:33 Blood Culture - Preliminary Blood No Growth after 24 hours Assessment and Plan Plan: 1sepsis and cellulitis an abscessof the right arm as well ascellulitis of right knee: patient had MRSA from the cultures that were OBTAINED from outside facility patient was started on vancomycin will need I&D general surgery was consulted -COPD without any acute exacerbation -History of atopic dermatitis and eczema: Patient is on steroids for that which will be continued the steroids are being Tapered because of his the scram admission and exacerbation of her he took his of atopic dermatitis -CVA/TIA in the past -acute renal failure -chronic kidney disease with mild worsening of creatinine today. If patient starts getting volume overloaded need to be restarted on Lasix at home dose at least -Coronary artery disease patient is supposed to get characterization as an outpatient but this is being postponed because of his hospitalization and infection. -DVT prophylaxis with Lovenox
[2020-08-13] MEDS: ACETAMINOPHEN TAB 325 MG TAB PO PRN (13:25)
--- NOTE | 2020-08-13 15:35 | P.GSCN ---
History of Present Illness Consult date: 08/13/20 History of present illness: CHIEF COMPLAINT: Cellulitis and abscess right wrist HISTORY OF PRESENT ILLNESS: This is a 60-year-old male with a known history of myocardial infarction, coronary artery disease, COPD and TIA. He also has a history of recurrent skin infections. Patient initially had a right lower thigh abscess that was drained by his PCP and has come back as MRSA. Patient has had some pain and swelling in the right wrist over the last 2 days. Patient's hand and entire arm is swelling. There is a fluctuant bump over the right wrist. Patient also had some drainage from a sore on his right PND and right knee. We've been consulted for the right wrist abscess. Patient is afebrile. He denies any nausea or vomiting. Denies any fever chills or sweats. PAST MEDICAL HISTORY: See list. PAST SURGICAL HISTORY: See list. MEDICATIONS: See list. ALLERGIES: See list. SOCIAL HISTORY: No illicit drug use. REVIEW OF SYSTEMS: CONSTITUTIONAL: Denies fever or chills. HEENT: Denies blurred vision, vision changes, or eye pain. Denies hemoptysis CARDIOVASCULAR: Denies chest pain or pressure. RESPIRATORY: No shortness of breath. GASTROINTESTINAL: See HPI for pertinent findings HEMATOLOGIC: Denies bleeding disorders. GENITOURINARY: Denies any blood in urine or increased urinary frequency. SKIN: Denies pruitis. Denies rash. PHYSICAL EXAM: VITAL SIGNS: Reviewed GENERAL: Well-developed in no acute distress. HEENT: No sclera icterus. Extraocular movements grossly intact. Moist buccal mucosa. Head is atraumatic, normocephalic. No nasal drainage. ABDOMEN: Soft. Nontender nondistended NEUROLOGIC: Alert and oriented. Cranial nerves II through XII grossly intact. SKIN: Right wrist abscess. Area is fluctuant. There is notable swelling of the right arm. The indurated area is warm and tender to touch. Right medial thigh evidence of cellulitis. No evidence of abscess. LABORATORY DATA: WBC 14.1 hemoglobin 12.4 IMAGING: Right wrist x-ray shows soft tissue swelling ASSESSMENT: 1. Right wrist abscess with cellulitis 2. MRSA cellulitis of the left thigh 3. Cellulitis of the right thigh. No abscess PLAN: -Patient had bedside incision and drainage of right wrist abscess by Dr. Roberto. Large amount of pus drainage was expelled. Cultures obtained. -Dressing was applied with Remigio wrap to right wrist -Antibiotics per ID Thank you for this consultation. Physician Grades 9 12 Tutor note has been reviewed by physician. Signing provider agrees with the documented findings, assessment, and plan of care. Past Medical History Past Medical History: Coronary Artery Disease (CAD), Chest Pain / Angina, COPD, CVA/TIA, Myocardial Infarction ([place]), Osteoarthritis (OA), Renal Disease, Skin Disorder Additional Past Medical History / Comment(s): hx migraines, epileptic seizures age 5-no rx, TIA, [place] x 2, electrocuted 30 yrs ago, diverticulitis, eczema, atopic dermatitis, renal disease stage 3, "swelling of whole body",, SOB, needs cardiac stent placed on 08/13 Last Myocardial Infarction Date:: unknown History of Any Multi-Drug Resistant Organisms: None Reported Past Surgical History: Ear Surgery, Heart Catheterization Additional Past Surgical History / Comment(s): left nephrectomy, tip of jade index fingers surgery after injury, heart cath 04/2020 at [facility], prosthetic surgery jade ears for otosclerosis Past Anesthesia/Blood Transfusion Reactions: No Reported Reaction Past Psychological History: No Psychological Hx Reported Smoking Status: Former smoker Past Alcohol Use History: Rare Additional Past Alcohol Use History / Comment(s): quit smoking 2015, smoked for 30 yrs Past Drug Use History: Marijuana Additional Drug Use History / Comment(s): CBC oil, edible - Past Family History Brother(s) Family Medical History: Cancer Mother Family Medical History: Blood Disorder Medications and Allergies Home Medications Medication Instructions Recorded Confirmed Type Allopurinol [Zyloprim] 100 mg PO BID 05/22/20 08/11/20 History Aspirin [Adult Low Dose Aspirin EC] 81 mg PO DAILY 05/22/20 08/11/20 History Atorvastatin [Lipitor] 20 mg PO DAILY 05/22/20 08/11/20 History Cetirizine HCl [Zyrtec] 10 mg PO DAILY 05/22/20 08/11/20 History Furosemide [Lasix] 20 mg PO DAILY@1500 05/22/20 08/11/20 History Furosemide [Lasix] 40 mg PO DAILY 05/22/20 08/11/20 History Losartan Potassium [Cozaar] 25 mg PO DAILY 05/22/20 08/11/20 History Metoprolol Tartrate [Lopressor] 25 mg PO BID 05/22/20 08/11/20 History Multivit-Min/FA/Lycopen/Lutein 1 tab PO DAILY 05/22/20 08/11/20 History [Centrum Silver Tablet] Potassium Chloride 10 meq PO HS 05/22/20 08/11/20 History Triamcinolone 0.5% Cream [Kenalog 1 applic TOPICAL DAILY PRN 05/22/20 08/11/20 History 0.5% Cream] Potassium Chloride 20 meq PO DAILY 08/11/20 08/11/20 History predniSONE See Taper PO DAILY 08/11/20 08/11/20 History Allergies Allergy/AdvReac Type Severity Reaction Status Date / Time Iodine and Iodide Containing Allergy Rash/Hives Verified 08/11/20 15:41 Produc Sulfa (Sulfonamide Allergy Rash/Hives Verified 08/11/20 15:41 Antibiotics) sulfamethoxazole Allergy Rash/Hives Verified 08/11/20 15:41 [From Bactrim] trimethoprim [From Bactrim] Allergy Rash/Hives Verified 08/11/20 15:41 Surgical - Exam Vital Signs Temp Pulse Resp BP Pulse Ox 99.1 F 83 18 112/62 94 L 08/11/20 13:58 08/11/20 13:58 08/11/20 13:58 08/11/20 13:58 08/11/20 13:58 Results - Labs 08/13/20 05:43 08/13/20 05:43 Abnormal Lab Results - Last 24 Hours (Table) 08/13/20 08/13/20 Range/Units 05:43 05:43 WBC 14.1 H (3.8-10.6) k/uL RBC 4.29 L (4.30-5.90) m/uL Hgb 12.4 L (13.0-17.5) gm/dL Plt Count 119 L (150-450) k/uL Est GFR (CKD-EPI)NonAf 54.2 L (60.0-200.0) Glucose 115 H (70-110) mg/dL Calcium 8.2 L (8.7-10.3) mg/dL Microbiology - Last 24 Hours (Table) 08/12/20 18:00 Gram Stain - Preliminary Finger - Left Fifth Wound Culture - Preliminary 08/11/20 14:33 Blood Culture - Preliminary Blood No Growth after 24 hours Diabetes panel 08/13/20 Range/Units 05:43 Sodium 139 (135-145) mmol/L Potassium 4.3 (3.5-5.5) mmol/L Chloride 104 (96-109) mmol/L Carbon Dioxide 28.3 (21.6-31.8) mmol/L BUN 17.0 (9.0-27.0) mg/dL Creatinine 1.4 (0.6-1.5) mg/dL Glucose 115 H (70-110) mg/dL Calcium 8.2 L (8.7-10.3) mg/dL Calcium panel 08/13/20 Range/Units 05:43 Calcium 8.2 L (8.7-10.3) mg/dL Pituitary panel 08/13/20 Range/Units 05:43 Sodium 139 (135-145) mmol/L Potassium 4.3 (3.5-5.5) mmol/L Chloride 104 (96-109) mmol/L Carbon Dioxide 28.3 (21.6-31.8) mmol/L BUN 17.0 (9.0-27.0) mg/dL Creatinine 1.4 (0.6-1.5) mg/dL Glucose 115 H (70-110) mg/dL Calcium 8.2 L (8.7-10.3) mg/dL Adrenal panel 08/13/20 Range/Units 05:43 Sodium 139 (135-145) mmol/L Potassium 4.3 (3.5-5.5) mmol/L Chloride 104 (96-109) mmol/L Carbon Dioxide 28.3 (21.6-31.8) mmol/L BUN 17.0 (9.0-27.0) mg/dL Creatinine 1.4 (0.6-1.5) mg/dL Glucose 115 H (70-110) mg/dL Calcium 8.2 L (8.7-10.3) mg/dL
--- NOTE | 2020-08-13 15:49 | PN ---
PROGRESS NOTE DATE OF SERVICE: 08/13/2020 REASON FOR FOLLOWUP: Right forearm and right lower thigh abscess and cellulitis. INTERVAL HISTORY: The patient is currently afebrile, has been breathing comfortably. Denies having any chest pain. No shortness of breath, no cough. Overall pain and discomfort to the right forearm and right knee has slightly decreased. PHYSICAL EXAMINATION: Blood pressure is 170/70 with a pulse of 72, temperature 98.2. He is 94% on room air. General description is a middle-aged male, lying in bed in no distress. RESPIRATORY SYSTEM: Unlabored breathing, clear to auscultation anteriorly. HEART: S1, S2. Regular rate and rhythm. ABDOMEN: Soft, no tenderness. LABS: Hemoglobin is 12.4, white count 14.1, creatinine 1.4. Culture from the dressing is negative, blood culture so far negative. DIAGNOSTIC IMPRESSION AND PLAN: Patient with right forearm and right lower thigh abscess and cellulitis. Surgery has been consulted. Did have a bedside I and D, outpatient culture positive for MRSA. Patient is on vancomycin to continue and will monitor his clinical course closely. MMODL / IJN: [id number] /
[2020-08-13] MEDS: VANCOMYCIN 1,750 MG in SODIUM CHLORIDE 0.9% 500 ML 500 ML IVPB SCH (22:06)
[2020-08-14 06:14] LABS: Basophils % (A) 0 %; Eosinophils % (A) 0 %; HCT 41.3 % (39.0-53.0); HGB 12.6 gm/dL (13.0-17.5); Hypochromasia Slight; Lymphocytes # (A) 0.9 k/uL (1.0-4.8); Lymphocytes % (A) 7 %; MCH 28.6 pg (25.0-35.0); MCHC 30.5 g/dL (31.0-37.0); MCV 93.6 fL (80.0-100.0); Mean Platelet Volume 9.3; Monocytes # (A) 0.3 k/uL (0-1.0); Monocytes % (A) 3 %; Neutrophils # (A) 11.2 k/uL (1.3-7.7); Neutrophils % (A) 89 %; Platelet Count 137 k/uL (150-450); RBC 4.41 m/uL (4.30-5.90); RDW 14.7 % (11.5-15.5); WBC 12.5 k/uL (3.8-10.6)
--- NOTE | 2020-08-14 07:55 | P.OP ---
Date of Procedure: 08/13/20 Preoperative Diagnosis: Right forearm abscess Postoperative Diagnosis: Right forearm abscess Procedure(s) Performed: Incision and drainage of right forearm abscess Anesthesia: local Surgeon: Ariel Roberto Estimated Blood Loss (ml): 5 Pathology: other (Culture) Condition: stable Disposition: floor Description of Procedure: The patient's placed on his bed in supine position. His right forearm was prepped and draped usual sterile fashion. The patient had an abscess in the dis nikolai forearm on the lateral aspect. There is ascites 1% local Xylocaine. Using a 15 blade the skin was incised and approximately 1.5 cm skin incision was made. The abscess cavity was then probed approximately 10 mL of purulent fluid was removed. The wound was cultured. The wound was then dressed with sterile dressing. Patient tolerated the procedure well.
[2020-08-14 09:03] LABS: African American GFR (CKD) 75.7 (60.0-200.0); Anion Gap 9.3 mmol/L (4.00-12.00); BUN/Creat Ratio 15.83 Ratio (12.00-20.00); Calcium 8.5 mg/dL (8.7-10.3); Carbon Dioxide 24.7 mmol/L (21.6-31.8); Non-African American GFR(CKD) 65.3 (60.0-200.0); Potassium 4.8 mmol/L (3.5-5.5)
[2020-08-14] MEDS: METOPROLOL TARTRATE 25 MG TAB PO SCH ×2 (09:22→20:05)
[2020-08-14] MEDS: LOSARTAN 25 MG TAB PO SCH (09:22)
[2020-08-14] MEDS: ATORVASTATIN 20 MG TAB PO SCH (09:22)
[2020-08-14] MEDS: allopurinoL 100 MG TAB PO SCH ×2 (09:22→20:05)
[2020-08-14] MEDS: FAMOTIDINE 20 MG TAB PO SCH ×2 (09:22→20:05)
[2020-08-14] MEDS: ASPIRIN 81 MG PO SCH (09:22)
[2020-08-14] MEDS: predniSONE 10 MG TAB PO SCH ×4 (09:23→20:06)
[2020-08-14] MEDS: ENOXAPARIN 40 MG/0.4 ML SYRINGE SQ SCH (09:23)
[2020-08-14] MEDS: SODIUM CHLORIDE 0.9% 1,000 ML IV SCH (09:29)
--- NOTE | 2020-08-14 09:32 | P.PN ---
Subjective she is admitted with right hand cellulitisand now abscess. Patient the wound cultures are showing MRSA and now. Patient has significant induration and abscess in the right hand as well as right knee may need drainage general surgery was consulted.his redness in the right arm is bit better compared to yesterday. Constitutional: Denied any fatigue denied any fever. Cardio vascular: denied any chest pain, palpitations Gastrointestinal denied any nausea vomiting Pulmonary: Denied any shortness of breath cough Neurologic denied any new focal deficits 08/14/2020 Patient is awake and alert, his right hand is swollen but patient states his imp rovement compared to yesterday. Dressing is in the distal forearm. He has also erythema and cellulitis of the skin over the right knee with some white spot in the middle. Surgical team on the case. His left knee is only with single papule but no signs of overt cellulitis.He has low-grade temperature today. WBC common down to 12.5 K. BMP is unremarkable with creatinine normal at 1.2 Patient remains on normal saline at 75 mL/h and the lower that 50. Patient states that he follows up with Dr. Finney before his contact dermatitis and he is currently on prednisone 40 mg daily going to 30 mg daily next week. Continue with IV vancomycin and infectious disease on the case. Objective - Vital Signs Vital signs: Vital Signs Temp 98.6 F 08/14/20 07:00 Pulse 61 08/14/20 07:00 Resp 18 08/14/20 07:00 BP 135/60 08/14/20 07:00 Pulse Ox 97 08/14/20 07:00 Intake & Output 08/13/20 08/14/20 08/14/20 18:59 06:59 18:59 Output Total 2 Balance -2 Output: Stool 2 Other: Voiding Method Toilet # Voids 1 3 - Exam GENERAL: The patient is alert and oriented x3, not in any acute distress. Well developed, well nourished. HEENT: Pupils are round and equally reacting to light. EOMI. No scleral icterus. No conjunctival pallor. Normocephalic, atraumatic. No pharyngeal erythema. No thyromegaly. CARDIOVASCULAR: S1 and S2 present. No murmurs, rubs, or gallops. PULMONARY: Chest is clear to auscultation, no wheezing or crackles. ABDOMEN: Soft, nontender, nondistended, normoactive bowel sounds. No palpable organomegaly. MUSCULOSKELETAL: No joint swelling or deformity. -EXTREMITIES: No cyanosis, clubbing, or pedal edema. Right hand is swollen, right wrist cellulitis status post I and D. Right knee cellulitis NEUROLOGICAL: Gross neurological examination did not reveal any focal deficits. SKIN: No rashes. no petechiae. - Labs CBC & Chem 7: 08/14/20 05:44 08/14/20 05:44 Labs: Abnormal Lab Results - Last 24 Hours (Table) 08/13/20 08/14/20 08/14/20 Range/Units 05:43 05:44 05:44 WBC 12.5 H (3.8-10.6) k/uL Hgb 12.6 L (13.0-17.5) gm/dL MCHC 30.5 L (31.0-37.0) g/dL Plt Count 137 L (150-450) k/uL Neutrophils # 11.2 H (1.3-7.7) k/uL Lymphocytes # 0.9 L (1.0-4.8) k/uL Est GFR (CKD-EPI)NonAf 54.2 L (60.0-200.0) Glucose 115 H 132 H (70-110) mg/dL Calcium 8.2 L 8.5 L (8.7-10.3) mg/dL Microbiology - Last 24 Hours (Table) 08/13/20 12:40 Gram Stain - Preliminary Wrist - Right Wound Culture - Preliminary 08/12/20 18:00 Gram Stain - Preliminary Finger - Left Fifth Wound Culture - Preliminary Presumptive MRSA 08/11/20 14:33 Blood Culture - Preliminary Blood No Growth after 48 hours Assessment and Plan Assessment: -sepsis and cellulitis an abscess of the right wrist status post I and D by surgical team as well as cellulitis of right knee: patient had MRSA from the cultures that were OBTAINED from outside facility patient was started on vancomycin. Follow-up with infectious disease team recommendation -COPD without any acute exacerbation -History of atopic dermatitis and eczema: Patient is on steroids for that which will be continued the steroids are being Tapered because of his the scram admission and exacerbation of her he took his of atopic dermatitis -CVA/TIA in the past -acute renal failure -chronic kidney disease with mild worsening of creatinine today. If patient starts getting volume overloaded need to be restarted on Lasix at home dose at least -Coronary artery disease patient is supposed to get characterization as an outpatient but this is being postponed because of his hospitalization and infection. -DVT prophylaxis with Lovenox
[2020-08-14] MEDS: ACETAMINOPHEN TAB 325 MG TAB PO PRN ×2 (10:35→17:45)
--- NOTE | 2020-08-14 12:07 | P.PN ---
Subjective Progress Note Date: 08/14/20 CHIEF COMPLAINT: Right forearm abscess HISTORY OF PRESENT ILLNESS: Patient had right forearm abscess I&D at bedside yesterday. He is having spontaneous drainage from the cellulitis abscess of the fifth right finger. He does report some pain. His right arm dressing is saturated. Dr. Dickson was able to express more pus from the arm today. Patient is afebrile. White count 12.5. Pain is controlled with pain medications. Drainage from right pinky finger presumptive MRSA PHYSICAL EXAM: VITAL SIGNS: Reviewed. GENERAL: Well-developed in no acute distress. HEENT: No sclera icterus. Extraocular movements grossly intact. Moist buccal mucosa. Head is atraumatic, normocephalic. ABDOMEN: Soft. Nondistended. Nontender. NEUROLOGIC: Alert and oriented. Cranial nerves II through XII grossly intact. Skin: Right distal forearm abscess with purulent drainage. Area of cellulitis is decreasing. Decrease in swelling in the right arm. Right pinky finger abscess is spontaneously draining purulent fluid. Right knee cellulitis with small yellowish bump. Slightly fluctuant. Decrease in erythema. ASSESSMENT: 1. Right forearm abscess status post incision and drainage PLAN: -Follow up on culture results -Antibiotics per ID -Right forearm abscess was irrigated with normal saline and dressing changed by Dr. Felisa Cadet for DVT prophylaxis Physician Senior Radiation Protection Technician note has been reviewed by physician. Signing provider agrees with the documented findings, assessment, and plan of care. Objective - Vital Signs Vital signs: Vital Signs Temp 98.6 F 08/14/20 07:00 Pulse 61 08/14/20 07:00 Resp 18 08/14/20 07:00 BP 135/60 08/14/20 07:00 Pulse Ox 97 08/14/20 07:00 Intake & Output 08/13/20 08/14/20 08/14/20 18:59 06:59 18:59 Output Total 2 Balance -2 Output: Stool 2 Other: Voiding Method Toilet # Voids 1 3 - Labs CBC & Chem 7: 08/14/20 05:44 08/14/20 05:44 Labs: Abnormal Lab Results - Last 24 Hours (Table) 08/14/20 08/14/20 Range/Units 05:44 05:44 WBC 12.5 H (3.8-10.6) k/uL Hgb 12.6 L (13.0-17.5) gm/dL MCHC 30.5 L (31.0-37.0) g/dL Plt Count 137 L (150-450) k/uL Neutrophils # 11.2 H (1.3-7.7) k/uL Lymphocytes # 0.9 L (1.0-4.8) k/uL Glucose 132 H (70-110) mg/dL Calcium 8.5 L (8.7-10.3) mg/dL Microbiology - Last 24 Hours (Table) 08/13/20 12:40 Gram Stain - Preliminary Wrist - Right Wound Culture - Preliminary Presumptive MRSA 08/12/20 18:00 Gram Stain - Preliminary Finger - Left Fifth Wound Culture - Preliminary Presumptive MRSA 08/11/20 14:33 Blood Culture - Preliminary Blood No Growth after 48 hours
--- NOTE | 2020-08-14 15:58 | PN ---
PROGRESS NOTE DATE OF SERVICE: 08/14/2020 REASON FOR FOLLOWUP: Right forearm and right leg abscess, cellulitis, MRSA. INTERVAL HISTORY: Patient is currently afebrile, has been breathing comfortably. The patient did have drainage of the right forearm abscess at the bedside by Surgery. The patient tolerated the procedure. Patient's pain to the right forearm is currently controlled. No chest pain. no shortness of breath, or cough. No abdominal pain or diarrhea. PHYSICAL EXAMINATION: Blood pressure 156/73 with a pulse of 71, temperature 98.1, he is 92% on room air. General description is a middle-aged male, lying in bed in no distress. RESPIRATORY SYSTEM: Unlabored breathing, clear to auscultation anteriorly. HEART: S1, S2. Regular rate and rhythm. ABDOMEN: Soft, no tenderness. Right forearm wound is currently dressed, no drainage on the dressing. LABS: Hemoglobin is 10.3, white count 12.5, BUN of 19, creatinine 1.2. Culture with MRSA. IMPRESSION/PLAN: Right forearm and right lower leg abscess, status post surgical drainage. Culture with presumptive MRSA. Patient to continue vancomycin, pharmacy to dose another 24 to 48 hours before transitioning to oral antibiotic, depending upon sensitivity. However, in view of the SULFA allergy, he may not have a good oral option. This will be discussed further with the therapeutic case manager to check his coverage for IV antibiotic in the outpatient setting. MMODL / IJN: [id number] /
[2020-08-14] MEDS: VANCOMYCIN 1,750 MG in SODIUM CHLORIDE 0.9% 500 ML 500 ML IVPB SCH (17:15)
[2020-08-15] MEDS: VANCOMYCIN 1,750 MG in SODIUM CHLORIDE 0.9% 500 ML 500 ML IVPB SCH ×2 (06:07→17:19)
[2020-08-15 06:16] LABS: Basophils % (A) 0 %; Eosinophils % (A) 0 %; HGB 12.6 gm/dL (13.0-17.5); Hypochromasia Slight; Lymphocytes % (A) 11 %; MCH 30.1 pg (25.0-35.0); MCHC 32.3 g/dL (31.0-37.0); MCV 93.2 fL (80.0-100.0); Mean Platelet Volume 9.1; Monocytes # (A) 0.3 k/uL (0-1.0); Monocytes % (A) 3 %; Neutrophils # (A) 7.6 k/uL (1.3-7.7); Neutrophils % (A) 85 %; Platelet Count 152 k/uL (150-450); RBC 4.19 m/uL (4.30-5.90); WBC 8.9 k/uL (3.8-10.6)
[2020-08-15] MEDS: SODIUM CHLORIDE 0.9% 1,000 ML IV SCH (06:48)
[2020-08-15] MEDS: allopurinoL 100 MG TAB PO SCH ×2 (07:07→20:11)
[2020-08-15] MEDS: ASPIRIN 81 MG PO SCH (07:07)
[2020-08-15] MEDS: FAMOTIDINE 20 MG TAB PO SCH ×2 (07:07→20:12)
[2020-08-15] MEDS: LOSARTAN 25 MG TAB PO SCH (07:07)
[2020-08-15] MEDS: ENOXAPARIN 40 MG/0.4 ML SYRINGE SQ SCH (07:08)
[2020-08-15] MEDS: ATORVASTATIN 20 MG TAB PO SCH (07:08)
[2020-08-15] MEDS: predniSONE 10 MG TAB PO SCH ×4 (07:08→20:12)
[2020-08-15] MEDS: METOPROLOL TARTRATE 25 MG TAB PO SCH ×2 (07:08→20:12)
[2020-08-15 09:08] LABS: African American GFR (CKD) 84.1 (60.0-200.0); Anion Gap 4.9 mmol/L (4.00-12.00); Calcium 8.3 mg/dL (8.7-10.3); Carbon Dioxide 26.1 mmol/L (21.6-31.8); Non-African American GFR(CKD) 72.6 (60.0-200.0); Potassium 4.6 mmol/L (3.5-5.5)
--- NOTE | 2020-08-15 12:24 | P.PN ---
Subjective she is admitted with right hand cellulitisand now abscess. Patient the wound cultures are showing MRSA and now. Patient has significant induration and abscess in the right hand as well as right knee may need drainage general surgery was consulted.his redness in the right arm is bit better compared to yesterday. Constitutional: Denied any fatigue denied any fever. Cardio vascular: denied any chest pain, palpitations Gastrointestinal denied any nausea vomiting Pulmonary: Denied any shortness of breath cough Neurologic denied any new focal deficits 08/14/2020 Patient is awake and alert, his right hand is swollen but patient states his imp rovement compared to yesterday. Dressing is in the distal forearm. He has also erythema and cellulitis of the skin over the right knee with some white spot in the middle. Surgical team on the case. His left knee is only with single papule but no signs of overt cellulitis.He has low-grade temperature today. WBC common down to 12.5 K. BMP is unremarkable with creatinine normal at 1.2 Patient remains on normal saline at 75 mL/h and the lower that 50. Patient states that he follows up with Dr. Finney before his contact dermatitis and he is currently on prednisone 40 mg daily going to 30 mg daily next week. Continue with IV vancomycin and infectious disease on the case. 08/15/2020 Patient right wrist abscess and right knee infection and cellulitis are improving while on vancomycin as patient has recent of MRSA Infectious disease on the case Patient is gradually improving Possible discharge in 24-48 hours once cleared by other consultants Objective - Vital Signs Vital signs: Vital Signs Temp 98.1 F 08/15/20 07:00 Pulse 66 08/15/20 07:00 Resp 18 08/15/20 07:00 BP 137/73 08/15/20 07:00 Pulse Ox 95 08/15/20 07:00 Intake & Output 08/14/20 08/15/20 08/15/20 18:59 06:59 18:59 Intake Total 100 Output Total 752 Balance 100 -752 Intake: Oral 100 Output: Urine 750 Stool 2 Other: Voiding Method Toilet # Voids 3 1 - Exam GENERAL: The patient is alert and oriented x3, not in any acute distress. Well developed, well nourished. HEENT: Pupils are round and equally reacting to light. EOMI. No scleral icterus. No conjunctival pallor. Normocephalic, atraumatic. No pharyngeal erythema. No thyromegaly. CARDIOVASCULAR: S1 and S2 present. No murmurs, rubs, or gallops. PULMONARY: Chest is clear to auscultation, no wheezing or crackles. ABDOMEN: Soft, nontender, nondistended, normoactive bowel sounds. No palpable organomegaly. MUSCULOSKELETAL: No joint swelling or deformity. -EXTREMITIES: No cyanosis, clubbing, or pedal edema. Right hand is swollen, right wrist cellulitis status post I and D. Right knee cellulitis NEUROLOGICAL: Gross neurological examination did not reveal any focal deficits. SKIN: No rashes. no petechiae. - Labs CBC & Chem 7: 08/15/20 06:01 08/15/20 06:01 Labs: Abnormal Lab Results - Last 24 Hours (Table) 08/15/20 08/15/20 Range/Units 06:01 06:01 RBC 4.19 L (4.30-5.90) m/uL Hgb 12.6 L (13.0-17.5) gm/dL Glucose 124 H (70-110) mg/dL Calcium 8.3 L (8.7-10.3) mg/dL Microbiology - Last 24 Hours (Table) 08/13/20 12:40 Gram Stain - Final Wrist - Right Wound Culture - Final Methicillin resist S. aureus 08/11/20 14:33 Blood Culture - Preliminary Blood No Growth after 72 hours Assessment and Plan Assessment: -sepsis and cellulitis an abscess of the right wrist status post I and D by surgical team as well as cellulitis of right knee: patient had MRSA from the cultures that were OBTAINED from outside facility patient was started on vancomycin. Follow-up with infectious disease team recommendation -COPD without any acute exacerbation -History of atopic dermatitis and eczema: Patient is on steroids for that which will be continued the steroids are being Tapered because of his the scram admission and exacerbation of her he took his of atopic dermatitis -CVA/TIA in the past -acute renal failure -chronic kidney disease with mild worsening of creatinine today. If patient starts getting volume overloaded need to be restarted on Lasix at home dose at least -Coronary artery disease patient is supposed to get characterization as an outpatient but this is being postponed because of his hospitalization and infection. -DVT prophylaxis with Lovenox
--- NOTE | 2020-08-15 14:03 | P.PN ---
Subjective Progress Note Date: 08/15/20 CHIEF COMPLAINT: Right forearm abscess HISTORY OF PRESENT ILLNESS: Patient had right forearm abscess status post I&D at bedside. He is having spontaneous drainage from the cellulitis abscess of the fifth right finger. Patient is now having some drainage from the right knee abscess. He is afebrile. White count 8.9. Right wrist culture growing MRSA PHYSICAL EXAM: VITAL SIGNS: Reviewed. GENERAL: Well-developed in no acute distress. HEENT: No sclera icterus. Extraocular movements grossly intact. Moist buccal mucosa. Head is atraumatic, normocephalic. ABDOMEN: Soft. Nondistended. Nontender. NEUROLOGIC: Alert and oriented. Cranial nerves II through XII grossly intact. Skin: Right distal forearm abscess with purulent drainage. Area of cellulitis is decreasing. Decrease in swelling in the right arm. Right pinky finger abscess is spontaneously draining purulent fluid. Right knee cellulitis with small yellowish bump which is now draining. Slightly fluctuant. Decrease in erythema. ASSESSMENT: 1. Right forearm abscess status post incision and drainage. Culture growing MRSA PLAN: -Antibiotics per ID -Dressing to right forearm changed -Lovenox for DVT prophylaxis Physician Woven Blind Loom Tender note has been reviewed by physician. Signing provider agrees with the documented findings, assessment, and plan of care. Objective - Vital Signs Vital signs: Vital Signs Temp 98.1 F 08/15/20 07:00 Pulse 66 08/15/20 07:00 Resp 18 08/15/20 07:00 BP 137/73 08/15/20 07:00 Pulse Ox 95 08/15/20 07:00 Intake & Output 08/14/20 08/15/20 08/15/20 18:59 06:59 18:59 Intake Total 100 100 Output Total 752 Balance 100 -752 100 Intake: Oral 100 100 Output: Urine 750 Stool 2 Other: Voiding Method Toilet # Voids 3 1 3 - Labs CBC & Chem 7: 08/15/20 06:01 08/15/20 06:01 Labs: Abnormal Lab Results - Last 24 Hours (Table) 08/15/20 08/15/20 Range/Units 06:01 06:01 RBC 4.19 L (4.30-5.90) m/uL Hgb 12.6 L (13.0-17.5) gm/dL Glucose 124 H (70-110) mg/dL Calcium 8.3 L (8.7-10.3) mg/dL Microbiology - Last 24 Hours (Table) 08/13/20 12:40 Gram Stain - Final Wrist - Right Wound Culture - Final Methicillin resist S. aureus 08/11/20 14:33 Blood Culture - Preliminary Blood No Growth after 72 hours
[2020-08-15] MEDS: ACETAMINOPHEN TAB 325 MG TAB PO PRN (15:23)
--- NOTE | 2020-08-15 15:43 | PN ---
PROGRESS NOTE DATE OF SERVICE: 08/15/2020 REASON FOR FOLLOWUP: Right forearm and right leg abscess and cellulitis. INTERVAL COURSE: The patient is currently afebrile. He is breathing comfortably. No chest pain or shortness of breath or cough. No nausea or vomiting or abdominal pain or any worsening pain to the right forearm. PHYSICAL EXAMINATION: Blood pressure 137/73 with a pulse of 66, temperature 98.1. He is 95% on room air. General description is a middle-aged male lying in bed in no distress. RESPIRATORY SYSTEM: Unlabored breathing. Clear to auscultation anteriorly. HEART: S1, S2. Regular rate and rhythm. ABDOMEN: Soft. No tenderness. LABS: White count normalized to 8.9, creatinine 1.1. DIAGNOSTIC IMPRESSION AND PLAN: Patient with right forearm and right leg abscess, status post drainage of the right forearm abscess. Culture with MRSA sensitive to Bactrim, although the patient is ALLERGIC TO BACTRIM. We will see if the patient qualifies for one or two doses of Delvance in the outpatient setting, as he refused outpatient IV daptomycin as home antibiotic therapy. If not, we will change him to p.o. antibiotic tomorrow. This was discussed with the briefcase sewer working on discharge. Continue supportive care. MMODL / IJN: [id number] / LEENA
[2020-08-16] MEDS: SODIUM CHLORIDE 0.9% 1,000 ML IV SCH (03:38)
[2020-08-16] MEDS ORDERED: VANCOMYCIN TROUGH DUE 1 EACH MISC MISCELLANE ONE (05:00)
[2020-08-16 06:05] LABS: Basophils % (A) 0 %; Eosinophils % (A) 0 %; HCT 39.2 % (39.0-53.0); HGB 12.6 gm/dL (13.0-17.5); Hypochromasia Slight; Lymphocytes % (A) 12 %; MCH 29.9 pg (25.0-35.0); MCHC 32.1 g/dL (31.0-37.0); MCV 92.9 fL (80.0-100.0); Mean Platelet Volume 9.2; Monocytes # (A) 0.2 k/uL (0-1.0); Monocytes % (A) 3 %; Neutrophils # (A) 6.8 k/uL (1.3-7.7); Neutrophils % (A) 84 %; Platelet Count 144 k/uL (150-450); RBC 4.21 m/uL (4.30-5.90); RDW 14.9 % (11.5-15.5); WBC 8.2 k/uL (3.8-10.6)
[2020-08-16] MEDS: VANCOMYCIN 1,750 MG in SODIUM CHLORIDE 0.9% 500 ML 500 ML IVPB SCH ×2 (07:15→18:01)
[2020-08-16] MEDS: allopurinoL 100 MG TAB PO SCH ×2 (08:52→21:44)
[2020-08-16] MEDS: LOSARTAN 25 MG TAB PO SCH (08:53)
[2020-08-16] MEDS: predniSONE 10 MG TAB PO SCH ×4 (08:53→21:44)
[2020-08-16] MEDS: ATORVASTATIN 20 MG TAB PO SCH (08:53)
[2020-08-16] MEDS: ASPIRIN 81 MG PO SCH (08:53)
[2020-08-16] MEDS: FAMOTIDINE 20 MG TAB PO SCH ×2 (08:53→21:44)
[2020-08-16] MEDS: METOPROLOL TARTRATE 25 MG TAB PO SCH ×2 (08:54→21:44)
[2020-08-16] MEDS: ENOXAPARIN 40 MG/0.4 ML SYRINGE SQ SCH (08:55)
[2020-08-16 09:14] LABS: African American GFR (CKD) 84.1 (60.0-200.0); Anion Gap 6.3 mmol/L (4.00-12.00); Calcium 8.4 mg/dL (8.7-10.3); Carbon Dioxide 24.7 mmol/L (21.6-31.8); Non-African American GFR(CKD) 72.6 (60.0-200.0); Potassium 4.8 mmol/L (3.5-5.5)
[2020-08-16 09:57] VITALS: BMI 29.7
--- NOTE | 2020-08-16 13:14 | P.PN ---
Subjective Progress Note Date: 08/16/20 CHIEF COMPLAINT: Right forearm abscess HISTORY OF PRESENT ILLNESS: Patient had right forearm abscess status post I&D at bedside. He is having spontaneous drainage from the cellulitis abscess of the fifth right finger. Patient is now having some drainage from the right knee abscess. Patient is showing improvement. He is afebrile. White count 8.2. Right wrist culture growing MRSA. Infectious disease and case loader operator working on arranging antibiotics PHYSICAL EXAM: VITAL SIGNS: Reviewed. GENERAL: Well-developed in no acute distress. HEENT: No sclera icterus. Extraocular movements grossly intact. Moist buccal mucosa. Head is atraumatic, normocephalic. ABDOMEN: Soft. Nondistended. Nontender. NEUROLOGIC: Alert and oriented. Cranial nerves II through XII grossly intact. Skin: Right distal forearm abscess with purulent drainage. Area of cellulitis is decreasing. Decrease in swelling in the right arm. Right pinky finger abscess is spontaneously draining purulent fluid. Right knee cellulitis with small yellowish bump which is now draining. Slightly fluctuant. Decrease in erythema. ASSESSMENT: 1. Right forearm abscess status post incision and drainage. Culture growing MRSA 2. Right knee cellulitis with abscess spontaneously draining 3. Right fifth finger cellulitis with drainage PLAN: -Antibiotics per ID -Patient to follow-up with Dr. Roberto as needed after discharge -Lovenox for DVT prophylaxis Physician Fluoroscope Operator note has been reviewed by physician. Signing provider agrees with the documented findings, assessment, and plan of care. Objective - Vital Signs Vital signs: Vital Signs Temp 98.5 F 08/16/20 07:02 Pulse 62 08/16/20 07:02 Resp 17 08/16/20 07:02 BP 135/60 08/16/20 07:02 Pulse Ox 96 08/16/20 07:02 Intake & Output 08/15/20 08/16/20 08/16/20 18:59 06:59 18:59 Intake Total 100 820 Balance 100 820 Weight 102.058 kg Intake: Intake, IV Titration 820 Amount Sodium Chloride 0.9% 1, 320 000 ml @ 50 mls/hr IV . Q20H ARNEL Rx#:[id number] Vancomycin 1,750 mg In 500 Sodium Chloride 0.9% 500 ml 500 ml @ 167 mls/hr IVPB Q12H ARNEL Rx#: [id number] Oral 100 Other: Voiding Method Toilet # Voids 3 - Labs CBC & Chem 7: 08/16/20 05:50 08/16/20 05:50 Labs: Abnormal Lab Results - Last 24 Hours (Table) 08/16/20 08/16/20 Range/Units 05:50 05:50 RBC 4.21 L (4.30-5.90) m/uL Hgb 12.6 L (13.0-17.5) gm/dL Plt Count 144 L (150-450) k/uL Glucose 116 H (70-110) mg/dL Calcium 8.4 L (8.7-10.3) mg/dL Microbiology - Last 24 Hours (Table) 08/12/20 18:00 Gram Stain - Final Finger - Left Fifth Wound Culture - Final Methicillin resist S. aureus 08/11/20 14:33 Blood Culture - Preliminary Blood No Growth after 96 hours 08/13/20 12:40 Gram Stain - Final Wrist - Right Wound Culture - Final Methicillin resist S. aureus
[2020-08-16] MEDS: ACETAMINOPHEN TAB 325 MG TAB PO PRN ×2 (13:38→21:44)
--- NOTE | 2020-08-16 14:50 | PN ---
PROGRESS NOTE DATE OF SERVICE: 08/16/2020 REASON FOR FOLLOWUP: Right forearm and right leg abscess and cellulitis. INTERVAL HISTORY: The patient is currently afebrile, he is breathing comfortably. Denies having any chest pain, no shortness or cough. Overall discomfort to the right forearm and right leg has decreased. PHYSICAL EXAMINATION: Blood pressure 135/60 with a pulse of 72, temperature 98.5. He is 96% on room air. General description is an elderly male, up in the chair in no distress. RESPIRATORY SYSTEM: Unlabored breathing, clear to auscultation anteriorly. HEART: S1, S2. Regular rate and rhythm. ABDOMEN: Soft, no tenderness. Right forearm swelling has decreased, some drainage on the right lower leg abscess site. LABS: Hemoglobin is 12.2, white count 8.2, BUN of 22, creatinine is 1.1. DIAGNOSTIC IMPRESSION AND PLAN: Patient with right forearm and right leg abscess and cellulitis, status post surgical drainage. Will wait for the outpatient IV antibiotics coverage if covered and patient able to afford, he can go home today on vancomycin dose to get dialyzed tomorrow and then next week. If not, will keep the patient on IV vancomycin all night and hopefully send him home tomorrow on doxycycline as he could not take the Bactrim with the previous history of significant rash. MMODL / IJN: [id number] / LEENA
--- NOTE | 2020-08-16 21:05 | P.PN ---
Subjective she is admitted with right hand cellulitisand now abscess. Patient the wound cultures are showing MRSA and now. Patient has significant induration and abscess in the right hand as well as right knee may need drainage general surgery was consulted.his redness in the right arm is bit better compared to yesterday. Constitutional: Denied any fatigue denied any fever. Cardio vascular: denied any chest pain, palpitations Gastrointestinal denied any nausea vomiting Pulmonary: Denied any shortness of breath cough Neurologic denied any new focal deficits 08/14/2020 Patient is awake and alert, his right hand is swollen but patient states his imp rovement compared to yesterday. Dressing is in the distal forearm. He has also erythema and cellulitis of the skin over the right knee with some white spot in the middle. Surgical team on the case. His left knee is only with single papule but no signs of overt cellulitis.He has low-grade temperature today. WBC common down to 12.5 K. BMP is unremarkable with creatinine normal at 1.2 Patient remains on normal saline at 75 mL/h and the lower that 50. Patient states that he follows up with Dr. Finney before his contact dermatitis and he is currently on prednisone 40 mg daily going to 30 mg daily next week. Continue with IV vancomycin and infectious disease on the case. 08/15/2020 Patient right wrist abscess and right knee infection and cellulitis are improving while on vancomycin as patient has recent of MRSA Infectious disease on the case Patient is gradually improving Possible discharge in 24-48 hours once cleared by other consultants 08/16/2020 Patient keep improving. Keep him as in-patient today for IV antibiotics and possible discharge tomorrow per ID team recommendation either oral or IV antibiotics Objective - Vital Signs Vital signs: Vital Signs Temp 98.1 F 08/16/20 15:00 Pulse 64 08/16/20 15:00 Resp 18 08/16/20 15:00 BP 132/68 08/16/20 15:00 Pulse Ox 96 08/16/20 15:00 Intake & Output 08/16/20 08/16/20 08/17/20 06:59 18:59 06:59 Intake Total 820 Output Total 300 Balance 820 -300 Weight 102.058 kg Intake: Intake, IV Titration 820 Amount Sodium Chloride 0.9% 1, 320 000 ml @ 50 mls/hr IV . Q20H [facility] Rx#:[id number] Vancomycin 1,750 mg In 500 Sodium Chloride 0.9% 500 ml 500 ml @ 167 mls/hr IVPB Q12H [facility] Rx#: [id number] Output: Urine 300 Other: Voiding Method Toilet - Exam GENERAL: The patient is alert and oriented x3, not in any acute distress. Well developed, well nourished. HEENT: Pupils are round and equally reacting to light. EOMI. No scleral icterus. No conjunctival pallor. Normocephalic, atraumatic. No pharyngeal erythema. No thyromegaly. CARDIOVASCULAR: S1 and S2 present. No murmurs, rubs, or gallops. PULMONARY: Chest is clear to auscultation, no wheezing or crackles. ABDOMEN: Soft, nontender, nondistended, normoactive bowel sounds. No palpable organomegaly. MUSCULOSKELETAL: No joint swelling or deformity. -EXTREMITIES: No cyanosis, clubbing, or pedal edema. Right hand is swollen, right wrist cellulitis status post I and D. Right knee cellulitis NEUROLOGICAL: Gross neurological examination did not reveal any focal deficits. SKIN: No rashes. no petechiae. - Labs CBC & Chem 7: 08/16/20 05:50 08/16/20 05:50 Labs: Abnormal Lab Results - Last 24 Hours (Table) 08/16/20 08/16/20 Range/Units 05:50 05:50 RBC 4.21 L (4.30-5.90) m/uL Hgb 12.6 L (13.0-17.5) gm/dL Plt Count 144 L (150-450) k/uL Glucose 116 H (70-110) mg/dL Calcium 8.4 L (8.7-10.3) mg/dL Microbiology - Last 24 Hours (Table) 08/11/20 14:33 Blood Culture - Preliminary Blood No Growth after 120 hours 08/12/20 18:00 Gram Stain - Final Finger - Left Fifth Wound Culture - Final Methicillin resist S. aureus Assessment and Plan Assessment: -sepsis and cellulitis an abscess of the right wrist status post I and D by surgical team as well as cellulitis of right knee: patient had MRSA from the c ultures that were OBTAINED from outside facility patient was started on vancomycin. Follow-up with infectious disease team recommendation -COPD without any acute exacerbation -History of atopic dermatitis and eczema: Patient is on steroids for that which will be continued the steroids are being Tapered because of his the scram admission and exacerbation of her he took his of atopic dermatitis -CVA/TIA in the past -acute renal failure -chronic kidney disease with mild worsening of creatinine today. If patient starts getting volume overloaded need to be restarted on Lasix at home dose at least -Coronary artery disease patient is supposed to get characterization as an outpatient but this is being postponed because of his hospitalization and infection. -DVT prophylaxis with Lovenox
[2020-08-17] MEDS: VANCOMYCIN 1,750 MG in SODIUM CHLORIDE 0.9% 500 ML 500 ML IVPB SCH (05:41)
[2020-08-17] MEDS: ASPIRIN 81 MG PO SCH (07:46)
[2020-08-17] MEDS: FAMOTIDINE 20 MG TAB PO SCH (07:47)
[2020-08-17] MEDS: METOPROLOL TARTRATE 25 MG TAB PO SCH (07:47)
[2020-08-17] MEDS: predniSONE 10 MG TAB PO SCH ×2 (07:47→13:04)
[2020-08-17] MEDS: ENOXAPARIN 40 MG/0.4 ML SYRINGE SQ SCH (07:47)
[2020-08-17] MEDS: allopurinoL 100 MG TAB PO SCH (07:47)
[2020-08-17] MEDS: LOSARTAN 25 MG TAB PO SCH (07:47)
[2020-08-17] MEDS: ATORVASTATIN 20 MG TAB PO SCH (07:47)
[2020-08-17 08:00] VITALS: BP 147/72; PULSE 67; RESP 17; TEMP 98.2
--- NOTE | 2020-08-17 10:31 | P.PN ---
Subjective Progress Note Date: 08/17/20 Principal diagnosis: The wrist abscess Patient doing better today. His pain is improved. Minimal drainage from the wrist I&D site. Minimal swelling right patellar region. Patient is afebrile Objective - Vital Signs Vital signs: Vital Signs Temp 98.2 F 08/17/20 07:00 Pulse 67 08/17/20 08:00 Resp 17 08/17/20 08:00 BP 147/72 08/17/20 07:00 Pulse Ox 92 L 08/17/20 07:00 Intake & Output 08/16/20 08/17/20 08/17/20 18:59 06:59 18:59 Intake Total 200 Output Total 300 Balance -300 200 Weight 102.058 kg Intake: Oral 200 Output: Urine 300 Other: Voiding Method Toilet Toilet # Voids 1 - Exam Right forearm and wrist with minimal tenderness and erythema, edema much improved, and minimal serous drainage noted, right patella with minimal erythema and edema noted - Labs CBC & Chem 7: 08/16/20 05:50 08/17/20 06:20 Labs: Microbiology - Last 24 Hours (Table) 08/11/20 14:33 Blood Culture - Preliminary Blood No Growth after 120 hours Assessment and Plan (1) Abscess, wrist Narrative/Plan: 60-year-old male with MRSA infection right wrist and presumed left patellar region. Clinically patient improving. Continue antibiotics. Continue local wound care. Current Visit: Yes Status: Acute Code(s): L02.419 - CUTANEOUS ABSCESS OF LIMB, UNSPECIFIED SNOMED Code(s): 91723123
--- NOTE | 2020-08-17 13:42 | PN ---
PROGRESS NOTE DATE OF SERVICE: 08/17/2020 REASON FOR FOLLOWUP: Right forearm and right lower leg abscess and cellulitis and MRSA noted. The patient is currently afebrile. The patient is breathing comfortably. Overall, right forearm swelling and redness has much improved, no further drainage. He did have some drainage from his right lower leg abscess site. No abdominal pain, no diarrhea. PHYSICAL EXAMINATION: Blood pressure is 147/72 with a pulse of 67, temperature 98.2. He is 92% on room air. General description is an is middle-aged male lying in bed in no distress. Respiratory system: Unlabored breathing, clear to auscultation anteriorly. Heart S1, S2. Regular rate and rhythm. Abdomen soft, no tenderness. Right forearm abscess site is currently dressed, no drainage on the dressing. The right lower leg area of swelling has slightly decreased. Minimal drainage. LABS: Creatinine 1.13. DIAGNOSTIC IMPRESSION AND PLAN: Patient with right forearm and right lower leg abscess and cellulitis. The right forearm abscess was drained by Surgery. Culture positive for MRSA. Patient is allergic to Bactrim and he was unable to afford outpatient Dalvance and did not want to go with an IV vancomycin or daptomycin. Antibiotic will be switched over to doxycycline 100 mg twice a day for 10 days and close outpatient followup. Questions were answered. MMODL / IJN: [id number] / LEENA
--- NOTE | 2020-08-18 23:14 | P.DS ---
Providers Date of admission: 08/11/20 15:09 Attending physician: Alvaro Sarmiento Consults: 08/12/20 12:27 Consult Physician Routine Consulting Provider: Hailey Reynolds Consult Reason/Comments: Cellulitis Do you want consulting provider notified?: Yes 08/13/20 11:36 Consult Physician Routine Consulting Provider: Ariel Roberto Consult Reason/Comments: Possible abscess Do you want consulting provider notified?: Yes Primary care physician: Jostin Feliz [facility] Hospital Course: Diagnoses: -sepsis and cellulitis an abscess of the right wrist status post I and D as well as cellulitis of right knee: Secondary to MRSA . Improved with IV vancomycin. cleared For discharge by infectious disease team on 7 days of doxycycline. -COPD without any acute exacerbation -History of atopic dermatitis and eczema: Patient is on steroids for that which will be continued the steroids are being Tapered and gradually every week per his doctor recommendation -CVA/TIA in the past -acute renal failure , resolved -chronic kidney disease -Coronary artery disease patient is supposed to get characterization as an outpatient but this is being postponed because of his hospitalization and infection.patient states that he will going to call his gas controller at [facility] this week upon their instruction to him over the phone. Hospital course: This is a pleasant 60 years old female with multiple medical problems was a dmitted because of cellulitis and abscess in the right wrist and right knee cellulitis. Patient has been evaluated by infectious disease and surgical team, she status post I and D of her right wrist abscess. Wound culture is growing MRSA. Patient was treated with IV vancomycin and infection showed significant interval improvement. Patient kept improvement and he stabilized for discharge. Patient was cleared for discharge by consultants including infectious disease team and surgical team. Patient will be discharged with antibiotics as per ID team Problems and management plan were discussed with the patient and he verbalized understanding and acceptance Patient was found stable and can be discharged home however he needs follow-up as an outpatient. Patient was instructed to follow up with PCP Dr. Feliz within one week and patient agrees. Also patient was instructed to follow-up with Dr. domínguez and he agrees with the appointments made for him on 09/09. Gen: patient is a AAOx3, no distress CVS: S1-S2, RRR, no murmur Lungs: B/L CTA, no wheezing Abdomen: soft, no distention, no tenderness, positive bowel sounds Extremity: no leg edema or induration. Improving right wrist cellulitis with minimal discharge from his wound, improving cellulitis of his right knee Time spent more than 35 minutes Plan - Discharge Summary Discharge Rx Participant: Yes New Discharge Prescriptions: New Doxycycline [Vibramycin] 100 mg PO BID #20 capsule Acetaminophen Tab [Tylenol] 650 mg PO Q6H PRN tab PRN Reason: Fever Continue Furosemide [Lasix] 20 mg PO DAILY@1500 Metoprolol Tartrate [Lopressor] 25 mg PO BID Losartan Potassium [Cozaar] 25 mg PO DAILY Allopurinol [Zyloprim] 100 mg PO BID Atorvastatin [Lipitor] 20 mg PO DAILY Aspirin [Adult Low Dose Aspirin EC] 81 mg PO DAILY Multivit-Min/FA/Lycopen/Lutein [Centrum Silver Tablet] 1 tab PO DAILY Cetirizine HCl [Zyrtec] 10 mg PO DAILY Potassium Chloride 10 meq PO HS Triamcinolone 0.5% Cream [Kenalog 0.5% Cream] 1 applic TOPICAL DAILY PRN PRN Reason: itchy rash predniSONE See Taper PO DAILY Discontinued Furosemide [Lasix] 40 mg PO DAILY Potassium Chloride 20 meq PO DAILY Discharge Medication List Allopurinol [Zyloprim] 100 mg PO BID 05/22/20 [History] Aspirin [Adult Low Dose Aspirin EC] 81 mg PO DAILY 05/22/20 [History] Atorvastatin [Lipitor] 20 mg PO DAILY 05/22/20 [History] Cetirizine HCl [Zyrtec] 10 mg PO DAILY 05/22/20 [History] Furosemide [Lasix] 20 mg PO DAILY@1500 05/22/20 [History] Losartan Potassium [Cozaar] 25 mg PO DAILY 05/22/20 [History] Metoprolol Tartrate [Lopressor] 25 mg PO BID 05/22/20 [History] Multivit-Min/FA/Lycopen/Lutein [Centrum Silver Tablet] 1 tab PO DAILY 05/22/20 [History] Potassium Chloride 10 meq PO HS 05/22/20 [History] Triamcinolone 0.5% Cream [Kenalog 0.5% Cream] 1 applic TOPICAL DAILY PRN [History] predniSONE See Taper PO DAILY 08/11/20 [History] Acetaminophen Tab [Tylenol] 650 mg PO Q6H PRN tab 09/26/20 [Rx] Doxycycline [Vibramycin] 100 mg PO BID #20 capsule 08/17/20 [Rx] Follow up Appointment(s)/Referral(s): Hailey Reynolds MD [STAFF PHYSICIAN] - 09/09/20 2:00 pm Jostin Feliz MD [Primary Care Provider] - 1-2 days Ariel Roberto MD [STAFF PHYSICIAN] - As Needed Patient Instructions/Handouts: Cellulitis (DC) Activity/Diet/Wound Care/Special Instructions: Heart healthy diet Activity is limited till you see your doctor Follow up with her gas controller at [facility] within one week, please call to make an appointment. You have the contact information as informed the medical team Discharge Disposition: HOME SELF-CARE
== END 2020-08-17 13:41 | disposition home or self-care (01) | DRG 872 ==
LOC: EC 13:56 → 4SSUR 15:09
PROVIDERS: ADMIT Internal Medicine; ATTEND Internal Medicine
PROC: 0H9DXZZ Drainage of Right Lower Arm Skin, External Approach (ICD-10-PCS; 2020-08-11)
PROC: 05HF33Z Insertion of Infusion Device into Left Cephalic Vein, Percutaneous Approach (ICD-10-PCS; 2020-08-13)
PROC: 0H9DXZZ Drainage of Right Lower Arm Skin, External Approach (ICD-10-PCS; principal; 2020-08-13 14:00)
DX: A41.02 Sepsis due to Methicillin resistant Staphylococcus aureus (principal); L03.113 Cellulitis of right upper limb; N17.9 Acute kidney failure, unspecified; L03.115 Cellulitis of right lower limb; L02.415 Cutaneous abscess of right lower limb; L02.413 Cutaneous abscess of right upper limb; L02.511 Cutaneous abscess of right hand; J44.9 Chronic obstructive pulmonary disease, unspecified; G40.909 Epilepsy, unspecified, not intractable, without status epilepticus; I25.10 Atherosclerotic heart disease of native coronary artery without angina pectoris; M19.90 Unspecified osteoarthritis, unspecified site; G43.909 Migraine, unspecified, not intractable, without status migrainosus; L20.9 Atopic dermatitis, unspecified; N18.2 Chronic kidney disease, stage 2 (mild); L03.011 Cellulitis of right finger; I25.2 Old myocardial infarction; W57.XXXA Bitten or stung by nonvenomous insect and other nonvenomous arthropods, initial encounter; Z79.899 Other long term (current) drug therapy; Z79.82 Long term (current) use of aspirin; Z86.14 Personal history of Methicillin resistant Staphylococcus aureus infection; Z87.19 Personal history of other diseases of the digestive system; Z98.890 Other specified postprocedural states; Z86.73 Personal history of transient ischemic attack (TIA), and cerebral infarction without residual deficits; Z90.5 Acquired absence of kidney; Z87.891 Personal history of nicotine dependence; Z96.29 Presence of other otological and audiological implants; Z88.2 Allergy status to sulfonamides; Z91.041 Radiographic dye allergy status; Z80.9 Family history of malignant neoplasm, unspecified
CPT/HCPCS: 10060; 36410; 36415; 76937; 80048; 80053; 80202; 82565; 83605; 85025; 85027; 87040; 87070; 87077; 87186; 87205; 96365; 96375; 99284

== ENCOUNTER → 2020-08-28 | Outpatient (CLI) | payer MEDICARE ==
[2020-08-28 16:23] LABS: HCT 41.2 % (39.0-53.0); HGB 13.2 gm/dL (13.0-17.5); Hypochromasia Slight; MCH 29.6 pg (25.0-35.0); MCHC 32.1 g/dL (31.0-37.0); MCV 92.2 fL (80.0-100.0); Mean Platelet Volume 8.6; Platelet Count 176 k/uL (150-450); RBC 4.47 m/uL (4.30-5.90); RDW 15.2 % (11.5-15.5); WBC 7.6 k/uL (3.8-10.6)
[2020-08-29 02:09] LABS: African American GFR (CKD) 57.8 (60.0-200.0); Anion Gap 7.8 mmol/L (4.00-12.00); BUN/Creat Ratio 27.33 Ratio (12.00-20.00); Calcium 8.9 mg/dL (8.7-10.3); Carbon Dioxide 29.2 mmol/L (21.6-31.8); Magnesium 1.7 mg/dL (1.5-2.4); Non-African American GFR(CKD) 49.9 (60.0-200.0); Potassium 4.5 mmol/L (3.5-5.5)
[2020-08-29 09:18] LABS: INR 0.97 (0.90-1.11); Prothrombin Time 10.4 sec (9.9-11.9)
== END | disposition home or self-care (01) ==
LOC: LABWHC1 15:36
PROVIDERS: ATTEND Internal Medicine Interventional Cardiology
DX: I25.118 Atherosclerotic heart disease of native coronary artery with other forms of angina pectoris (principal)
CPT/HCPCS: 36415; 80048; 83735; 85027; 85610

== ENCOUNTER → 2020-09-25 | Outpatient (CLI) | payer MEDICARE ==
[2020-09-25 15:54] LABS: HCT 39.6 % (39.0-53.0); HGB 12.7 gm/dL (13.0-17.5); Hypochromasia Moderate; MCH 31.3 pg (25.0-35.0); MCHC 31.9 g/dL (31.0-37.0); Macrocytosis Slight; Mean Platelet Volume 8.6; Platelet Count 179 k/uL (150-450); RBC 4.04 m/uL (4.30-5.90); RDW 15.7 % (11.5-15.5); WBC 5.2 k/uL (3.8-10.6)
[2020-09-26 03:51] LABS: African American GFR (CKD) 53.5 (60.0-200.0); Anion Gap 6.6 mmol/L (4.00-12.00); Calcium 8.7 mg/dL (8.7-10.3); Carbon Dioxide 32.4 mmol/L (21.6-31.8); Non-African American GFR(CKD) 46.1 (60.0-200.0); Potassium 4.2 mmol/L (3.5-5.5)
== END | disposition home or self-care (01) ==
LOC: LABWHC1 14:17
PROVIDERS: ATTEND Internal Medicine Interventional Cardiology
DX: I25.10 Atherosclerotic heart disease of native coronary artery without angina pectoris (principal); N18.9 Chronic kidney disease, unspecified
CPT/HCPCS: 36415; 80048; 85027